=== PATIENT | male | born 1945 | race Caucasian/White ===

== ENCOUNTER 2018-07-23 09:04 | Inpatient (IN) | payer MEDICARE ==
[~2018-07-23] VITALS: Ht 182.9 cm; Wt 82.8 kg
[2018-07-23] MEDS ORDERED: IV NORMAL SALINE 1000ML BAG 1,000 ML IV ONE (09:15)
[2018-07-23 09:43] LABS: BASO % 1 % (0-3); EOS # 0.1 x10^3/uL (0.0-0.7); EOS % 1 % (0-3); HEMATOCRIT 33.7 % (39.0-53.0); HEMOGLOBIN 11.2 g/dL (13.0-17.5); LYMPH # 0.8 x10^3/uL (1.0-4.8); LYMPH % 8 % (24-48); MEAN CORPUSCULAR HEMOGLOBIN 26 pg (25-35); MEAN CORPUSCULAR HGB CONC 33 g/dL (31-37); MEAN CORPUSCULAR VOLUME 79 fL (79-100); MONO # 0.7 x10^3/uL (0.0-1.1); MONO % 7 % (0-9); NEUT # 8.7 x10^3uL (1.8-7.7); NEUT % 84 % (31-73); PLATELET COUNT 282 x10^3/uL (140-400); RED BLOOD COUNT 4.29 x10^6/uL (4.30-5.70); RED CELL DISTRIBUTION WIDTH 15.4 % (11.5-14.5); WHITE BLOOD COUNT 10.3 x10^3/uL (4.0-11.0)
[2018-07-23 09:53] LABS: CALCIUM 8.7 mg/dL (8.5-10.1); GFR 73.5; POTASSIUM 4.3 mmol/L (3.5-5.1)
[2018-07-23 09:59] LABS: CLARITY,URINE BLOODY; COLOR,URINE RED
[2018-07-23 10:01] LABS: PH,URINE 6.5; RBC,URINE TNTC /HPF (0-2); WBC,URINE FOBS /HPF (0-4)
[2018-07-23 10:08] LABS: ALBUMIN 3.1 g/dL (3.4-5.0); ALBUMIN/GLOBULIN RATIO 0.5 (1.0-1.7); TOTAL BILIRUBIN 0.3 mg/dL (0.2-1.0); TOTAL PROTEIN 9.4 g/dL (6.4-8.2)
[2018-07-23] MEDS ORDERED: fentaNYL PF VIAL 100 MCG/2 ML VIAL IV ONE (10:15)
[2018-07-23 10:18] LABS: PROTHROMBIN TIME PATIENT 13.1 SEC (11.7-14.0)
[2018-07-23 10:28] LABS: FECAL OB PT POSITIVE (NEG)
--- NOTE | 2018-07-23 11:37 | RAD ---
CT study of the abdomen and pelvis without contrast Clinical indications: Hematuria and flank pain. History kidney stones. TECHNIQUE: Noncontrast helical CT scanning of the abdomen and pelvis was performed. Without contrast, the sensitivity to detect organ pathology and GI tract pathology is decreased. PQRS compliance Statement One or more of the following individualized dose reduction techniques were utilized for this study: 1. Automated exposure control 2. Adjustment of the mA and/or kV according to patient size 3. Use of iterative reconstruction technique FINDINGS: Mild left-sided hydronephrosis and hydroureter is seen on the left side. This is due to a mid left ureteral stone measuring 5 mm in size located at the level of L4-5. Tiny punctate stone of the lower pole of the left kidney is seen. Small stone of the lower pole of the right kidney is seen measuring 5 mm. There is some hyperdense material within the posterior aspect of the urinary bladder which may represent blood related to hematuria. There is a focal nodular area of the anterior left side of the urinary bladder wall measuring 11 mm. This could represent a neoplasm. No adrenal mass is seen. The liver and spleen and pancreas are homogeneous in appearance on this noncontrast study. Gallbladder is normal and no extra hepatic biliary ductal dilatation is seen. No focal aneurysmal dilatation of the abdominal aorta is seen. No enlarged abdominal or pelvic lymphadenopathy is seen. There is segmental wall thickening of the colon including the entire sigmoid colon and descending colon and transverse colon with relative sparing of the hepatic flexure and descending colon and cecum. There is thickening of the terminal ileum. The findings may be seen with enterocolitis which may be infectious in nature or could be secondary to Crohn's disease. There is mild wall thickening of the rectum as well. There is mild pericolonic inflammatory change present. No small bowel obstruction is seen. No free air or free fluid is evident. The appendix is normal. Small right-sided pleural effusion is seen. Calcifications of the right lower lung field are seen. There is linear scarring of the right lower lung field. Patient has a history of lung cancer and this could be related to previous surgery. No osteolytic process is evident. IMPRESSION: Mild left-sided hydronephrosis and hydroureter due to a left mid ureteral stone located at the level of L4-5 and measuring 5 mm. Bilateral renal stones are seen. Wall thickening of the colon and terminal ileum which may be seen with inflammatory or infectious enterocolitis. 11 mm nodule of the urinary bladder wall which could represent a neoplasm. Hyperdense material is seen within the posterior urinary bladder which may represent blood. Small loculated pleural effusion and scarring of the right lung field which may be related to previous surgery given the patient's history of lung cancer. Electronically signed by: Felice Chaudhary MD (07/23/2018 11:33 AM) [facility]
[2018-07-23] MEDS ORDERED: ONDANSETRON PF 4 MG/2 ML VIAL. IV PRN (12:00)
[2018-07-23] MEDS ORDERED: ACETAMINOPHEN 325 MG TABLET. PO PRN (12:00)
--- NOTE | 2018-07-23 12:02 | PHYS DOC ---
Past Medical History Past Medical History: Diabetes-Type II, High Cholesterol, Hypertension, Other Additional Past Medical Histor: LUNG CA Past Surgical History: Cancer Surgery Additional Past Surgical Histo: PARTIAL LUNG REMOVED Alcohol Use: None Drug Use: None Adult General Chief Complaint Chief Complaint: BLOOD IN URINE [facility] HPI Patient is a 72 year old male who presents with hematuria 2 days. The patient does have a long history of kidney stones. He states that this pain does feel different than his normal kidney stones and he has much more blood in his urine. He states that it took approximately 5 minutes to express the bloody urine that he was able to give us a sample today. He states that he is having bilateral pain with worse pain on the left. He denies nausea with the pain although he has had some diarrhea. Review of Systems Review of Systems Constitutional: Denies fever or chills [] Eyes: Denies change in visual acuity, redness, or eye pain [] HENT: Denies nasal congestion or sore throat [] Respiratory: Denies cough or shortness of breath [] Cardiovascular: No additional information not addressed in HPI [] GI: See history of present illness : See history of present illness Musculoskeletal: See history of present illness Integument: Denies rash or skin lesions [] Neurologic: Denies headache, focal weakness or sensory changes [] Endocrine: Denies polyuria or polydipsia [] All other systems were reviewed and found to be within normal limits, except as documented in this note. Current Medications Current Medications Current Medications Medications (Trade) Dose Ordered Sig/Yamileth Start Time Stop Time Status Last Admin Dose Admin Acetaminophen (Tylenol) 650 mg PRN Q4HRS PRN 07/23/18 12:00 07/24/18 11:59 UNV Ceftriaxone Sodium 50 ml @ 100 mls/hr 1X ONCE 07/23/18 12:00 07/23/18 12:29 UNV Fentanyl Citrate (Fentanyl 2ml Vial) 50 mcg PRN Q2HR PRN 07/23/18 12:00 07/24/18 11:59 UNV Ondansetron HCl (Zofran) 4 mg PRN Q8HRS PRN 07/23/18 12:00 07/24/18 11:59 UNV Sodium Chloride 1,000 ml @ 125 mls/hr Q8H 07/23/18 11:51 07/24/18 11:50 UNV Allergies Allergies Allergies Coded Allergies Type Severity Reaction Last Updated Verified Penicillins Allergy Unknown 07/23/18 Yes Physical Exam Physical Exam Constitutional: Well developed, well nourished, no acute distress, non-toxic appearance. [] Cardiovascular:Heart rate regular rhythm, no murmur [] Lungs & Thorax: Bilateral breath sounds clear to auscultation [] Abdomen: Bowel sounds normal, soft, no tenderness, no masses, no pulsatile masses. [] Skin: Warm, dry, no erythema, no rash. [] Back: No tenderness, left CVA tenderness. [] Extremities: No tenderness, no cyanosis, no clubbing, ROM intact, no edema. [] Neurologic: Alert and oriented X 3, normal motor function, normal sensory function, no focal deficits noted. [] Psychologic: Affect normal, judgement normal, mood normal. [] Current Patient Data Vital Signs Vital Signs Date Time Temp Pulse Resp B/P (MAP) Pulse Ox O2 Delivery O2 Flow Rate FiO2 07/23/18 10:08 16 07/23/18 09:46 97.5 75 156/74 (101) 98 Room Air 97.5 Lab Values Laboratory Tests Test 07/23/18 09:10 07/23/18 09:35 07/23/18 10:08 Urine Collection Type Unknown Urine Color Red Urine Clarity Bloody Urine pH 6.5 Urine Specific [place] 1.015 Urine Protein mg/dL (NEG-TRACE) Urine Glucose (UA) 100 mg/dL (NEG) Urine Ketones (Stick) mg/dL (NEG) Urine Blood Large (NEG) Urine Nitrite (NEG) Urine Bilirubin (NEG) Urine Urobilinogen Dipstick mg/dL (0.2 mg/dL) Urine Leukocyte Esterase Small (NEG) Urine RBC Tntc /HPF (0-2) Urine WBC Fobs /HPF (0-4) Urine Bacteria /HPF (0-FEW) White Blood Count 10.3 x10^3/uL (4.0-11.0) Red Blood Count 4.29 x10^6/uL (4.30-5.70) L Hemoglobin 11.2 g/dL (13.0-17.5) L Hematocrit 33.7 % (39.0-53.0) L Mean Corpuscular Volume 79 fL (79-100) Mean Corpuscular Hemoglobin 26 pg (25-35) Mean Corpuscular Hemoglobin Concent 33 g/dL (31-37) Red Cell Distribution Width 15.4 % (11.5-14.5) H Platelet Count 282 x10^3/uL (140-400) Neutrophils (%) (Auto) 84 % (31-73) H Lymphocytes (%) (Auto) 8 % (24-48) L Monocytes (%) (Auto) 7 % (0-9) Eosinophils (%) (Auto) 1 % (0-3) Basophils (%) (Auto) 1 % (0-3) Neutrophils # (Auto) 8.7 x10^3uL (1.8-7.7) H Lymphocytes # (Auto) 0.8 x10^3/uL (1.0-4.8) L Monocytes # (Auto) 0.7 x10^3/uL (0.0-1.1) Eosinophils # (Auto) 0.1 x10^3/uL (0.0-0.7) Basophils # (Auto) 0.0 x10^3/uL (0.0-0.2) Prothrombin Time 13.1 SEC (11.7-14.0) Prothrombin Time INR 1.0 (0.8-1.1) PTT 28 SEC (24-38) Sodium Level 135 mmol/L (136-145) L Potassium Level 4.3 mmol/L (3.5-5.1) Chloride Level 100 mmol/L (98-107) Carbon Dioxide Level 29 mmol/L (21-32) Anion Gap 6 (6-14) Blood Urea Nitrogen 14 mg/dL (8-26) Creatinine 1.0 mg/dL (0.7-1.3) Estimated GFR (Cockcroft-Gault) 73.5 BUN/Creatinine Ratio 14 (6-20) Glucose Level 139 mg/dL (70-99) H Calcium Level 8.7 mg/dL (8.5-10.1) Total Bilirubin 0.3 mg/dL (0.2-1.0) Aspartate Amino Transferase (AST) 25 U/L (15-37) Alanine Aminotransferase (ALT) 25 U/L (16-63) Alkaline Phosphatase 105 U/L (46-116) Total Protein 9.4 g/dL (6.4-8.2) H Albumin 3.1 g/dL (3.4-5.0) L Albumin/Globulin Ratio 0.5 (1.0-1.7) L Stool Occult Blood Positive (NEG) Laboratory Tests 07/23/18 09:35 Laboratory Tests 07/23/18 09:35 EKG EKG [] Radiology/Procedures Radiology/Procedures [] PATIENT: ROWAN LAYTON ACCOUNT: [id number] : 1945 LOCATION: ER AGE: 72 SEX: M EXAM STATUS: REG ER ORD. 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 History kidney stones. TECHNIQUE: Noncontrast helical CT scanning of the abdomen and pelvis was performed. Without contrast, the sensitivity to detect organ pathology and GI tract pathology is decreased. PQRS compliance Statement One or more of the following individualized dose reduction techniques were utilized for this study: 1. Automated exposure control 2. Adjustment of the mA and/or kV according to patient size 3. Use of iterative reconstruction technique FINDINGS: Mild left-sided hydronephrosis and hydroureter is seen on the left side. This is due to a mid left ureteral stone measuring 5 mm in size located at the level of L4-5. Tiny punctate stone of the lower pole of the left kidney is seen. Small stone of the lower pole of the right kidney is seen measuring 5 mm. There is some hyperdense material within the posterior aspect of the urinary bladder which may represent blood related to hematuria. There is a focal nodular area of the anterior left side of the urinary bladder wall measuring 11 mm. This could represent a neoplasm. No adrenal mass is seen. The liver and spleen and pancreas are homogeneous in appearance on this noncontrast study. Gallbladder is normal and no extra hepatic biliary ductal dilatation is seen. No focal aneurysmal dilatation of the abdominal aorta is seen. No enlarged abdominal or pelvic lymphadenopathy is seen. There is segmental wall thickening of the colon including the entire sigmoid colon and descending colon and transverse colon with relative sparing of the hepatic flexure and descending colon and cecum. There is thickening of the terminal ileum. The findings may be seen with enterocolitis which may be infectious in nature or could be secondary to Crohn's disease. There is mild wall thickening of the rectum as well. There is mild pericolonic inflammatory change present. No small bowel obstruction is seen. No free air or free fluid is evident. The appendix is normal. Small right-sided pleural effusion is seen. Calcifications of the right lower lung field are seen. There is linear scarring of the right lower lung field. Patient has a history of lung cancer and this could be related to previous surgery. No osteolytic process is evident. IMPRESSION: Mild left-sided hydronephrosis and hydroureter due to a left mid ureteral stone located at the level of L4-5 and measuring 5 mm. Bilateral renal stones are seen. Wall thickening of the colon and terminal ileum which may be seen with inflammatory or infectious enterocolitis. 11 mm nodule of the urinary bladder wall which could represent a neoplasm. Hyperdense material is seen within the posterior urinary bladder which may represent blood. Small loculated pleural effusion and scarring of the right lung field which may be related to previous surgery given the patient's history of lung cancer. Electronically signed by: Kylee Chaudhary MD (07/23/2018 11:33 AM) [facility] DICTATED and SIGNED BY: KYLEE CHAUDHARY MD DATE: 07/23/181121 Course & Med Decision Making Course & Med Decision Making Pertinent Labs and Imaging studies reviewed. (See chart for details) []The patient does have bilateral renal stones as well as a few leukocytes noted to his urine. He is being given a gram of Rocephin in the emergency department. He has been accepted to Dr. Lagunas's service for admission. A urology consult has been placed. Dragon Disclaimer Dragon Disclaimer This electronic medical record was generated, in whole or in part, using a voice recognition dictation system. Departure Departure Impression: Primary Impression: UTI (urinary tract infection) Additional Impressions: Renal and ureteric calculus Lesion of bladder Disposition: ADMITTED INPATIENT Condition: GOOD Problem Qualifiers TERRENCE GRIGGS APRN Jul 23, 2018 12:02
[2018-07-23] MEDS: IV NORMAL SALINE 1000ML BAG 1,000 ML IV SCH ×2 (12:55→19:51)
--- NOTE | 2018-07-23 13:38 | EKG ---
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
[2018-07-23 14:32] VITALS: BP 118/71
[2018-07-23] MEDS ORDERED: VIT1TABL34 PO (14:32)
[2018-07-23] MEDS ORDERED: GABA-586 PO (14:32)
[2018-07-23] MEDS ORDERED: METF500T16 PO (14:32)
[2018-07-23] MEDS ORDERED: DULO60CA6 PO (14:32)
[2018-07-23] MEDS ORDERED: FERR325T14 PO (14:32)
[2018-07-23] MEDS ORDERED: DEXT10CA2 PO (14:32)
[2018-07-23] MEDS ORDERED: ASPI-612 PO (14:32)
[2018-07-23] MEDS ORDERED: CYAN10005 PO (14:32)
[2018-07-23] MEDS ORDERED: MULT-690 PO (14:32)
[2018-07-23] MEDS ORDERED: PITA4TAB2 PO (14:32)
[2018-07-23] MEDS ORDERED: LISI-338 PO (14:32)
[2018-07-23] MEDS ORDERED: NEFA150T PO ×2 (14:32)
[2018-07-23] MEDS: LISINOPRIL 5 MG TABLET. PO SCH (16:00)
[2018-07-23] MEDS ORDERED: MULTIVITAMIN I-VITE TABLET. PO SCH (16:00)
--- NOTE | 2018-07-23 16:37 | PDOC1 ---
History and Physical Date of Admission Date of Admission DATE: 07/23/18 TIME: 16:33 Source Source: Chart review, Patient History of Present Illness History of Present Illness Mr. Medina is a 72 year old male who presents with flank pain. He also has new hematuria 2 days and had some difficulty voiding earlier he has since voided well a couple of times, and feels like his flank pain is improving, mostly improved with IV fentanyl he was given./ long history of many prior renal stones, all passed without intervention needed , and he reports all were small. Past Medical History Cardiovascular: HTN Endocrine: Diabetes Family History Family History: No Significant Social History Smoke: No ALCOHOL: none Drugs: None Current Problem List Problem List Problems Medical Problems: (1) Lesion of bladder Status: Acute (2) Renal and ureteric calculus Status: Acute (3) UTI (urinary tract infection) Status: Acute Current Medications Current Medications Current Medications Sodium Chloride 1,000 ml @ 1,000 mls/hr 1X ONCE IV Last administered on at 09:59; Start 07/23/18 at 09:15; Stop 07/23/18 at 10:14; Status DC Fentanyl Citrate (Fentanyl 2ml Vial) 50 mcg 1X ONCE IV Last administered on 07/23/18at 10:08; Start 07/23/18 at 10:15; Stop 07/23/18 at 10:16; Status DC Ondansetron HCl (Zofran) 4 mg PRN Q8HRS PRN IV NAUSEA/VOMITING; Start 07/23/18 at 12:00; Stop 07/24/18 at 11:59 Fentanyl Citrate (Fentanyl 2ml Vial) 50 mcg PRN Q2HR PRN IV PAIN; Start at 12:00; Stop 07/24/18 at 11:59 Sodium Chloride 1,000 ml @ 125 mls/hr Q8H IV Last administered on 07/23/18at 12: 55; Start 07/23/18 at 11:51; Stop 07/24/18 at 11:50 Acetaminophen (Tylenol) 650 mg PRN Q4HRS PRN PO FEVER; Start 07/23/18 at 12:00; Stop 07/24/18 at 11:59 Ceftriaxone Sodium 50 ml @ 100 mls/hr 1X ONCE IV ; Start 07/23/18 at 12:00; Stop 07/23/18 at 12:29; Status UNV Levofloxacin/ Dextrose 50 ml @ 50 mls/hr ONCE ONCE IV Last administered on 07/23at 12:54; Start 07/23/18 at 12:30; Stop 07/23/18 at 13:29; Status DC Ferrous Sulfate (Feosol) 325 mg DAILY08 PO ; Start 07/23/18 at 16:00 Non-Formulary Medication (Dextroamphetamine/ Amphetamine (Dextroamp-Amphet Er 10 Mg Cap)) 1 cap DAILYWBKFT PO ; Start 07/24/18 at 08:00; Status UNV Duloxetine HCl (Cymbalta) 60 mg QHS PO ; Start 07/23/18 at 21:00 Gabapentin (Neurontin) 300 mg QHS PO ; Start 07/23/18 at 21:00 Lisinopril (Prinivil) 2.5 mg DAILY PO ; Start 07/23/18 at 16:00 Metformin HCl (Glucophage) 500 mg BIDWMEALS PO ; Start 07/23/18 at 17:00 Multivitamins/ Minerals (I-Caleb) 1 tab DAILY PO ; Start 07/23/18 at 16:00; Stop 07/23/18 at 16:00; Status DC Non-Formulary Medication (Nefazodone Hcl ) 0.5 tab DAILY07 PO ; Start 07/24/18 at 07:00; Status UNV Non-Formulary Medication (Nefazodone Hcl ) 1.5 tab DAILY16 PO ; Start 07/23/18 at 16:00; Status UNV Atorvastatin Calcium (Lipitor) 10 mg QHS PO ; Start 07/23/18 at 21:00 Non-Formulary Medication (Vit A/Vit C/Vit E/Zinc/Copper (Preservision Areds Tablet)) 2 tab DAILY PO ; Start 07/24/18 at 09:00; Status UNV Multivitamins/ Minerals (I-Caleb) 2 tab DAILY PO ; Start 07/23/18 at 16:00 Tamsulosin HCl (Flomax) 0.4 mg DAILY PO ; Start 07/23/18 at 16:15 Active Scripts Active Reported Vitamin B-12 (Cyanocobalamin (Vitamin B-12)) 1,000 Mcg Tablet 1 Tab PO DAILY Ferrous Sulfate 325 Mg Tablet 1 Tab PO DAILY Preservision Areds Tablet (Vit A/Vit C/Vit E/Zinc/Copper) 1 Each Tablet 2 Tab PO DAILY Centrum Silver Men Tablet (Multivit-Min/FA/Lycopen/Lutein) 1 Each Tablet 1 Each PO DAILY Dextroamp-Amphet Er 10 Mg Cap (Dextroamphetamine/Amphetamine) 10 Mg Cap.er.24h 1 Cap PO DAILYWBKFT Aspirin Ec (Aspirin) 81 Mg Tablet.dr 1 Tab PO DAILY Livalo (Pitavastatin Calcium) 4 Mg Tablet 0.5 Tab PO DAILY Lisinopril 5 Mg Tablet 0.5 Tab PO DAILY Gabapentin 300 Mg Capsule 300 Mg PO HS Metformin Hcl 500 Mg Tablet 500 Mg PO BIDWMEALS Cymbalta (Duloxetine Hcl) 60 Mg Capsule.dr 60 Mg PO HS Nefazodone Hcl 150 Mg Tablet 1.5 Tab PO DAILY16 Nefazodone Hcl 150 Mg Tablet 0.5 Tab PO DAILY07 Allergies Allergies: Coded Allergies: Penicillins (Verified Allergy, Severe, 07/23/18) states "i was told it will kill me"; presume anaphylaxis ROS General: No: Chills, Night Sweats, Fatigue, Malaise, Appetite, Other PSYCHOLOGICAL ROS: YES: Sleep disturbances; No: Anxiety, Behavioral Disorder, Concentration difficultie, Decreased libido , Depression, Disorientation, Hallucinations, Hostility, Irritablity, Memory difficulties, Mood Swings, Obsessive thoughts, Other Eyes: Yes Uses glasses HEENT: No: Heacaches, Visual Changes, Hearing change, Nasal congestion, Nasal discharge, Oral lesions, Sinus pain, Sore Throat, Epistaxis, Sneezing, Snoring, Tinnitus, Vertigo, Vocal changes, Other Hematological and Lymphatic: YES: Bleeding Problems (urine), Other; No: Blood Clots, Blood Transfusions, Brusing, Night Sweats, Pallor, Swollen Lymph Nodes Respiratory: No: Cough, Hemoptysis, Orthopnea, Pleuritic Pain, Shortness of breath, SOB with excertion, Sputum Changes, Stridor, Tachypnea, Wheezing, Other Cardiovascular: No Chest Pain, No Palpitations, No Orthopnea, No Paroxysmal Noc. Dyspnea, No Edema, No Lt Headedness, No Other Genitourinary: YES Hematuria, YES Flank Pain Musculoskeletal: No Gait Disturbance, No Joint Pain, No Joint Stiffness, No Joint Swelling, No Muscle Pain, No Muscular Weakness, No Pain In:, No Swelling In:, No Other Neurological: No Behavorial Changes, No Bowel/Bladder ControlChng, No Confusion , No Dizziness, No Gait Disturbance, No Headaches, No Impaired Coord/balance, No Memory Loss, No Numbness/Tingling, No Seizures, No Speech Problems, No Tremors, No Visual Changes, No Weakness, No Other Skin: Yes Dry Skin; No Eczema, No Hair Changes, No Lumps, No Mole Changes, No Mottling, No Nail Changes, No Pruritus, No Rash, No Skin Lesion Changes, No Other, No Acne Physical Exam General: Alert, Oriented X3, Cooperative, No acute distress HEENT: Atraumatic, Mucous membr. moist/pink Lungs: Clear to auscultation, Normal air movement Heart: S1S2, RRR, no gallops, murmurs Abdomen: Normal bowel sounds, Soft Extremities: No clubbing, No edema Skin: No breakdown, No significant lesion Neuro: Normal speech, Normal tone Psych/Mental Status: Mental status NL, Mood NL Vitals Vitals Vital Signs Date Time Temp Pulse Resp B/P (MAP) Pulse Ox O2 Delivery O2 Flow Rate FiO2 07/23/18 14:32 95.7 74 18 118/71 (87) 98 Room Air 95.7 Labs Labs Laboratory Tests Test 07/23/18 09:10 07/23/18 09:35 07/23/18 10:08 Urine Collection Type Unknown Urine Color Red Urine Clarity Bloody Urine pH 6.5 Urine Specific [place] 1.015 Urine Protein mg/dL (NEG-TRACE) Urine Glucose (UA) 100 mg/dL (NEG) Urine Ketones (Stick) mg/dL (NEG) Urine Blood Large (NEG) Urine Nitrite (NEG) Urine Bilirubin (NEG) Urine Urobilinogen Dipstick mg/dL (0.2 mg/dL) Urine Leukocyte Esterase Small (NEG) Urine RBC Tntc /HPF (0-2) Urine WBC Fobs /HPF (0-4) Urine Bacteria /HPF (0-FEW) White Blood Count 10.3 x10^3/uL (4.0-11.0) Red Blood Count 4.29 x10^6/uL (4.30-5.70) Hemoglobin 11.2 g/dL (13.0-17.5) Hematocrit 33.7 % (39.0-53.0) Mean Corpuscular Volume 79 fL (79-100) Mean Corpuscular Hemoglobin 26 pg (25-35) Mean Corpuscular Hemoglobin Concent 33 g/dL (31-37) Red Cell Distribution Width 15.4 % (11.5-14.5) Platelet Count 282 x10^3/uL (140-400) Neutrophils (%) (Auto) 84 % (31-73) Lymphocytes (%) (Auto) 8 % (24-48) Monocytes (%) (Auto) 7 % (0-9) Eosinophils (%) (Auto) 1 % (0-3) Basophils (%) (Auto) 1 % (0-3) Neutrophils # (Auto) 8.7 x10^3uL (1.8-7.7) Lymphocytes # (Auto) 0.8 x10^3/uL (1.0-4.8) Monocytes # (Auto) 0.7 x10^3/uL (0.0-1.1) Eosinophils # (Auto) 0.1 x10^3/uL (0.0-0.7) Basophils # (Auto) 0.0 x10^3/uL (0.0-0.2) Prothrombin Time 13.1 SEC (11.7-14.0) Prothromb Time International Ratio 1.0 (0.8-1.1) Activated Partial Thromboplast Time 28 SEC (24-38) Sodium Level 135 mmol/L (136-145) Potassium Level 4.3 mmol/L (3.5-5.1) Chloride Level 100 mmol/L (98-107) Carbon Dioxide Level 29 mmol/L (21-32) Anion Gap 6 (6-14) Blood Urea Nitrogen 14 mg/dL (8-26) Creatinine 1.0 mg/dL (0.7-1.3) Estimated GFR (Cockcroft-Gault) 73.5 BUN/Creatinine Ratio 14 (6-20) Glucose Level 139 mg/dL (70-99) Calcium Level 8.7 mg/dL (8.5-10.1) Total Bilirubin 0.3 mg/dL (0.2-1.0) Aspartate Amino Transf (AST/SGOT) 25 U/L (15-37) Alanine Aminotransferase (ALT/SGPT) 25 U/L (16-63) Alkaline Phosphatase 105 U/L (46-116) Total Protein 9.4 g/dL (6.4-8.2) Albumin 3.1 g/dL (3.4-5.0) Albumin/Globulin Ratio 0.5 (1.0-1.7) Stool Occult Blood Positive (NEG) Laboratory Tests Test 07/23/18 09:10 07/23/18 09:35 07/23/18 10:08 Urine Collection Type Unknown Urine Color Red Urine Clarity Bloody Urine pH 6.5 Urine Specific [place] 1.015 Urine Protein mg/dL (NEG-TRACE) Urine Glucose (UA) 100 mg/dL (NEG) Urine Ketones (Stick) mg/dL (NEG) Urine Blood Large (NEG) Urine Nitrite (NEG) Urine Bilirubin (NEG) Urine Urobilinogen Dipstick mg/dL (0.2 mg/dL) Urine Leukocyte Esterase Small (NEG) Urine RBC Tntc /HPF (0-2) Urine WBC Fobs /HPF (0-4) Urine Bacteria /HPF (0-FEW) White Blood Count 10.3 x10^3/uL (4.0-11.0) Red Blood Count 4.29 x10^6/uL (4.30-5.70) Hemoglobin 11.2 g/dL (13.0-17.5) Hematocrit 33.7 % (39.0-53.0) Mean Corpuscular Volume 79 fL (79-100) Mean Corpuscular Hemoglobin 26 pg (25-35) Mean Corpuscular Hemoglobin Concent 33 g/dL (31-37) Red Cell Distribution Width 15.4 % (11.5-14.5) Platelet Count 282 x10^3/uL (140-400) Neutrophils (%) (Auto) 84 % (31-73) Lymphocytes (%) (Auto) 8 % (24-48) Monocytes (%) (Auto) 7 % (0-9) Eosinophils (%) (Auto) 1 % (0-3) Basophils (%) (Auto) 1 % (0-3) Neutrophils # (Auto) 8.7 x10^3uL (1.8-7.7) Lymphocytes # (Auto) 0.8 x10^3/uL (1.0-4.8) Monocytes # (Auto) 0.7 x10^3/uL (0.0-1.1) Eosinophils # (Auto) 0.1 x10^3/uL (0.0-0.7) Basophils # (Auto) 0.0 x10^3/uL (0.0-0.2) Prothrombin Time 13.1 SEC (11.7-14.0) Prothromb Time International Ratio 1.0 (0.8-1.1) Activated Partial Thromboplast Time 28 SEC (24-38) Sodium Level 135 mmol/L (136-145) Potassium Level 4.3 mmol/L (3.5-5.1) Chloride Level 100 mmol/L (98-107) Carbon Dioxide Level 29 mmol/L (21-32) Anion Gap 6 (6-14) Blood Urea Nitrogen 14 mg/dL (8-26) Creatinine 1.0 mg/dL (0.7-1.3) Estimated GFR (Cockcroft-Gault) 73.5 BUN/Creatinine Ratio 14 (6-20) Glucose Level 139 mg/dL (70-99) Calcium Level 8.7 mg/dL (8.5-10.1) Total Bilirubin 0.3 mg/dL (0.2-1.0) Aspartate Amino Transf (AST/SGOT) 25 U/L (15-37) Alanine Aminotransferase (ALT/SGPT) 25 U/L (16-63) Alkaline Phosphatase 105 U/L (46-116) Total Protein 9.4 g/dL (6.4-8.2) Albumin 3.1 g/dL (3.4-5.0) Albumin/Globulin Ratio 0.5 (1.0-1.7) Stool Occult Blood Positive (NEG) VTE Prophylaxis Ordered VTE Prophylaxis Devices: No VTE Pharmacological Prophylaxi: Contraindicated Assessment/Plan Assessment/Plan flank pain acute hematuria renal stone bladder mass, NOS renal consult admit w./ IV fluid Htn Dm2, home [place], CRISTIAN Arana MD Jul 23, 2018 16:37
[2018-07-23] MEDS ORDERED: oxyCODONE IR 5 MG TABLET PO PRN (16:45)
[2018-07-23] MEDS: metFORMIN 500 MG TABLET PO SCH (17:10)
[2018-07-23] MEDS: TAMSULOSIN 0.4 MG CAP.ER.24H. PO SCH (17:10)
[2018-07-23] MEDS: FERROUS SULFATE 325 MG TABLET. PO SCH (17:11)
[2018-07-23] MEDS: NEFAZODONE HCL PO SCH (17:15)
[2018-07-23] MEDS: fentaNYL PF VIAL 100 MCG/2 ML VIAL IV PRN ×2 (18:49→22:31)
--- NOTE | 2018-07-23 18:53 | PDOC2 ---
UROLOGY CONSULT Date of Admission DATE: 07/23/18 TIME: 18:44 Chief Complaint gh flank pain Source: Chart review, Patient 2-3 days of GH and left renal colic. No fever, no chills, no nausea or vomiting. Prior stones, passed spontaneously. Severity of GH during this episode exceeds that of prior episodes. Koolaid color upon my encounter. Pain controlled with iv meds. ua with rbc, wbc, no bacteria. cr ct with 5mm left mid ureter and 1cm left dome lesion. ROS ROS: RESPIRATORY: Shortness of breath denies. Cough denies. UROLOGY: Denies blood in urine. Denies difficulty urinating Past Surgical History: No pertinent history Current Medications Current Medications Sodium Chloride 1,000 ml @ 1,000 mls/hr 1X ONCE IV Last administered on at 09:59; Start 07/23/18 at 09:15; Stop 07/23/18 at 10:14; Status DC Fentanyl Citrate (Fentanyl 2ml Vial) 50 mcg 1X ONCE IV Last administered on 07/23/18at 10:08; Start 07/23/18 at 10:15; Stop 07/23/18 at 10:16; Status DC Ondansetron HCl (Zofran) 4 mg PRN Q8HRS PRN IV NAUSEA/VOMITING; Start 07/23/18 at 12:00; Stop 07/24/18 at 11:59 Fentanyl Citrate (Fentanyl 2ml Vial) 50 mcg PRN Q2HR PRN IV PAIN; Start at 12:00; Stop 07/24/18 at 11:59 Sodium Chloride 1,000 ml @ 125 mls/hr Q8H IV Last administered on 07/23/18at 12: 55; Start 07/23/18 at 11:51; Stop 07/24/18 at 11:50 Acetaminophen (Tylenol) 650 mg PRN Q4HRS PRN PO FEVER; Start 07/23/18 at 12:00; Stop 07/24/18 at 11:59 Ceftriaxone Sodium 50 ml @ 100 mls/hr 1X ONCE IV ; Start 07/23/18 at 12:00; Stop 07/23/18 at 12:29; Status UNV Levofloxacin/ Dextrose 50 ml @ 50 mls/hr ONCE ONCE IV Last administered on 07/23at 12:54; Start 07/23/18 at 12:30; Stop 07/23/18 at 13:29; Status DC Ferrous Sulfate (Feosol) 325 mg DAILY08 PO Last administered on 07/23/18at 17:11 ; Start 07/23/18 at 16:00 Non-Formulary Medication (Dextroamphetamine/ Amphetamine (Dextroamp-Amphet Er 10 Mg Cap)) 1 cap DAILYWBKFT PO ; Start 07/24/18 at 08:00; Status UNV Duloxetine HCl (Cymbalta) 60 mg QHS PO ; Start 07/23/18 at 21:00 Gabapentin (Neurontin) 300 mg QHS PO ; Start 07/23/18 at 21:00 Lisinopril (Prinivil) 2.5 mg DAILY PO ; Start 07/23/18 at 16:00 Metformin HCl (Glucophage) 500 mg BIDWMEALS PO Last administered on 07/23/18at 17 :10; Start 07/23/18 at 17:00 Multivitamins/ Minerals (I-Caleb) 1 tab DAILY PO ; Start 07/23/18 at 16:00; Stop 07/23/18 at 16:00; Status DC Non-Formulary Medication (Nefazodone Hcl ) 0.5 tab DAILY07 PO ; Start 07/24/18 at 07:00; Status UNV Non-Formulary Medication (Nefazodone Hcl ) 1.5 tab DAILY16 PO ; Start 07/23/18 at 16:00; Status UNV Atorvastatin Calcium (Lipitor) 10 mg QHS PO ; Start 07/23/18 at 21:00 Non-Formulary Medication (Vit A/Vit C/Vit E/Zinc/Copper (Preservision Areds Tablet)) 2 tab DAILY PO ; Start 07/24/18 at 09:00; Status UNV Multivitamins/ Minerals (I-Caleb) 2 tab DAILY PO ; Start 07/23/18 at 16:00 Tamsulosin HCl (Flomax) 0.4 mg DAILY PO Last administered on 07/23/18at 17:10; Start 07/23/18 at 16:15 Oxycodone HCl (Roxicodone) 5 mg PRN Q6HRS PRN PO PAIN SEVERE; Start 07/23/18 at 16:45 Acetaminophen (Tylenol) 650 mg BID PO ; Start 07/23/18 at 21:00 Active Scripts Active Reported Vitamin B-12 (Cyanocobalamin (Vitamin B-12)) 1,000 Mcg Tablet 1 Tab PO DAILY Ferrous Sulfate 325 Mg Tablet 1 Tab PO DAILY Preservision Areds Tablet (Vit A/Vit C/Vit E/Zinc/Copper) 1 Each Tablet 2 Tab PO DAILY Centrum Silver Men Tablet (Multivit-Min/FA/Lycopen/Lutein) 1 Each Tablet 1 Each PO DAILY Dextroamp-Amphet Er 10 Mg Cap (Dextroamphetamine/Amphetamine) 10 Mg Cap.er.24h 1 Cap PO DAILYWBKFT Aspirin Ec (Aspirin) 81 Mg Tablet.dr 1 Tab PO DAILY Livalo (Pitavastatin Calcium) 4 Mg Tablet 0.5 Tab PO DAILY Lisinopril 5 Mg Tablet 0.5 Tab PO DAILY Gabapentin 300 Mg Capsule 300 Mg PO HS Metformin Hcl 500 Mg Tablet 500 Mg PO BIDWMEALS Cymbalta (Duloxetine Hcl) 60 Mg Capsule.dr 60 Mg PO HS Nefazodone Hcl 150 Mg Tablet 1.5 Tab PO DAILY16 Nefazodone Hcl 150 Mg Tablet 0.5 Tab PO DAILY07 Allergies: Coded Allergies: Penicillins (Verified Allergy, Severe, 07/23/18) states "i was told it will kill me"; presume anaphylaxis Physical Examination PHYSICAL EXAMINATION: GENERAL: Gen. appearance: No acute distress. Mood/affect: Pleasant. HEENT: Head: Normocephalic, atraumatic. Airway Impairment: No. CHEST: Shape and expansion: Normal. Expansion: Normal. SKIN: General: Warm. Color: Good. GENITOURINARY:External genitalia - wnl. NEUROLOGICAL: Mental status: Alert and oriented 3. Language: Normal. VITALS Vital Signs Date Time Temp Pulse Resp B/P (MAP) Pulse Ox O2 Delivery O2 Flow Rate FiO2 07/23/18 16:00 74 118/71 07/23/18 14:32 95.7 18 98 Room Air 95.7 Labs Laboratory Tests Test 07/23/18 09:10 07/23/18 09:35 07/23/18 10:08 Urine Collection Type Unknown Urine Color Red Urine Clarity Bloody Urine pH 6.5 Urine Specific [place] 1.015 Urine Protein mg/dL (NEG-TRACE) Urine Glucose (UA) 100 mg/dL (NEG) Urine Ketones (Stick) mg/dL (NEG) Urine Blood Large (NEG) Urine Nitrite (NEG) Urine Bilirubin (NEG) Urine Urobilinogen Dipstick mg/dL (0.2 mg/dL) Urine Leukocyte Esterase Small (NEG) Urine RBC Tntc /HPF (0-2) Urine WBC Fobs /HPF (0-4) Urine Bacteria /HPF (0-FEW) White Blood Count 10.3 x10^3/uL (4.0-11.0) Red Blood Count 4.29 x10^6/uL (4.30-5.70) Hemoglobin 11.2 g/dL (13.0-17.5) Hematocrit 33.7 % (39.0-53.0) Mean Corpuscular Volume 79 fL (79-100) Mean Corpuscular Hemoglobin 26 pg (25-35) Mean Corpuscular Hemoglobin Concent 33 g/dL (31-37) Red Cell Distribution Width 15.4 % (11.5-14.5) Platelet Count 282 x10^3/uL (140-400) Neutrophils (%) (Auto) 84 % (31-73) Lymphocytes (%) (Auto) 8 % (24-48) Monocytes (%) (Auto) 7 % (0-9) Eosinophils (%) (Auto) 1 % (0-3) Basophils (%) (Auto) 1 % (0-3) Neutrophils # (Auto) 8.7 x10^3uL (1.8-7.7) Lymphocytes # (Auto) 0.8 x10^3/uL (1.0-4.8) Monocytes # (Auto) 0.7 x10^3/uL (0.0-1.1) Eosinophils # (Auto) 0.1 x10^3/uL (0.0-0.7) Basophils # (Auto) 0.0 x10^3/uL (0.0-0.2) Prothrombin Time 13.1 SEC (11.7-14.0) Prothromb Time International Ratio 1.0 (0.8-1.1) Activated Partial Thromboplast Time 28 SEC (24-38) Sodium Level 135 mmol/L (136-145) Potassium Level 4.3 mmol/L (3.5-5.1) Chloride Level 100 mmol/L (98-107) Carbon Dioxide Level 29 mmol/L (21-32) Anion Gap 6 (6-14) Blood Urea Nitrogen 14 mg/dL (8-26) Creatinine 1.0 mg/dL (0.7-1.3) Estimated GFR (Cockcroft-Gault) 73.5 BUN/Creatinine Ratio 14 (6-20) Glucose Level 139 mg/dL (70-99) Calcium Level 8.7 mg/dL (8.5-10.1) Total Bilirubin 0.3 mg/dL (0.2-1.0) Aspartate Amino Transf (AST/SGOT) 25 U/L (15-37) Alanine Aminotransferase (ALT/SGPT) 25 U/L (16-63) Alkaline Phosphatase 105 U/L (46-116) Total Protein 9.4 g/dL (6.4-8.2) Albumin 3.1 g/dL (3.4-5.0) Albumin/Globulin Ratio 0.5 (1.0-1.7) Stool Occult Blood Positive (NEG) Laboratory Tests Test 07/23/18 09:10 07/23/18 09:35 07/23/18 10:08 Urine Collection Type Unknown Urine Color Red Urine Clarity Bloody Urine pH 6.5 Urine Specific [place] 1.015 Urine Protein mg/dL (NEG-TRACE) Urine Glucose (UA) 100 mg/dL (NEG) Urine Ketones (Stick) mg/dL (NEG) Urine Blood Large (NEG) Urine Nitrite (NEG) Urine Bilirubin (NEG) Urine Urobilinogen Dipstick mg/dL (0.2 mg/dL) Urine Leukocyte Esterase Small (NEG) Urine RBC Tntc /HPF (0-2) Urine WBC Fobs /HPF (0-4) Urine Bacteria /HPF (0-FEW) White Blood Count 10.3 x10^3/uL (4.0-11.0) Red Blood Count 4.29 x10^6/uL (4.30-5.70) Hemoglobin 11.2 g/dL (13.0-17.5) Hematocrit 33.7 % (39.0-53.0) Mean Corpuscular Volume 79 fL (79-100) Mean Corpuscular Hemoglobin 26 pg (25-35) Mean Corpuscular Hemoglobin Concent 33 g/dL (31-37) Red Cell Distribution Width 15.4 % (11.5-14.5) Platelet Count 282 x10^3/uL (140-400) Neutrophils (%) (Auto) 84 % (31-73) Lymphocytes (%) (Auto) 8 % (24-48) Monocytes (%) (Auto) 7 % (0-9) Eosinophils (%) (Auto) 1 % (0-3) Basophils (%) (Auto) 1 % (0-3) Neutrophils # (Auto) 8.7 x10^3uL (1.8-7.7) Lymphocytes # (Auto) 0.8 x10^3/uL (1.0-4.8) Monocytes # (Auto) 0.7 x10^3/uL (0.0-1.1) Eosinophils # (Auto) 0.1 x10^3/uL (0.0-0.7) Basophils # (Auto) 0.0 x10^3/uL (0.0-0.2) Prothrombin Time 13.1 SEC (11.7-14.0) Prothromb Time International Ratio 1.0 (0.8-1.1) Activated Partial Thromboplast Time 28 SEC (24-38) Sodium Level 135 mmol/L (136-145) Potassium Level 4.3 mmol/L (3.5-5.1) Chloride Level 100 mmol/L (98-107) Carbon Dioxide Level 29 mmol/L (21-32) Anion Gap 6 (6-14) Blood Urea Nitrogen 14 mg/dL (8-26) Creatinine 1.0 mg/dL (0.7-1.3) Estimated GFR (Cockcroft-Gault) 73.5 BUN/Creatinine Ratio 14 (6-20) Glucose Level 139 mg/dL (70-99) Calcium Level 8.7 mg/dL (8.5-10.1) Total Bilirubin 0.3 mg/dL (0.2-1.0) Aspartate Amino Transf (AST/SGOT) 25 U/L (15-37) Alanine Aminotransferase (ALT/SGPT) 25 U/L (16-63) Alkaline Phosphatase 105 U/L (46-116) Total Protein 9.4 g/dL (6.4-8.2) Albumin 3.1 g/dL (3.4-5.0) Albumin/Globulin Ratio 0.5 (1.0-1.7) Stool Occult Blood Positive (NEG) Assessment/Plan gh. bladder lesion. urolothiasis. May continue with ivf, flomax for SSP. If not passed in next 24-36h, then we can do do urs during cysto(see below). ucb. needs cysto, turbt, mitomycin C. DEEDEE CORTES MD Jul 23, 2018 18:53
[2018-07-23 19:00] VITALS: BP 97/60
[2018-07-23] MEDS: ATORVASTATIN CALCIUM 10 MG TABLET. PO SCH (21:29)
[2018-07-23] MEDS: GABAPENTIN 300 MG CAPSULE. PO SCH (21:29)
[2018-07-23] MEDS: ACETAMINOPHEN 325 MG TABLET. PO SCH (21:29)
[2018-07-23] MEDS: DULoxetine HCL 30 MG CAPSULE.DR PO SCH (21:30)
[2018-07-23 23:00] VITALS: BP 112/61
[2018-07-24] MEDS: IV NORMAL SALINE 1000ML BAG 1,000 ML IV SCH (00:43)
[2018-07-24 03:00] VITALS: BP 104/60
[2018-07-24 04:35] LABS: BASO % 0 % (0-3); EOS # 0.2 x10^3/uL (0.0-0.7); EOS % 3 % (0-3); HEMATOCRIT 28.6 % (39.0-53.0); HEMOGLOBIN 9.4 g/dL (13.0-17.5); LYMPH # 1.4 x10^3/uL (1.0-4.8); LYMPH % 19 % (24-48); MEAN CORPUSCULAR HEMOGLOBIN 26 pg (25-35); MEAN CORPUSCULAR HGB CONC 33 g/dL (31-37); MEAN CORPUSCULAR VOLUME 79 fL (79-100); MONO # 0.5 x10^3/uL (0.0-1.1); MONO % 8 % (0-9); NEUT % 70 % (31-73); PLATELET COUNT 216 x10^3/uL (140-400); RED BLOOD COUNT 3.63 x10^6/uL (4.30-5.70); RED CELL DISTRIBUTION WIDTH 15.5 % (11.5-14.5); WHITE BLOOD COUNT 7.1 x10^3/uL (4.0-11.0)
[2018-07-24 05:24] LABS: CALCIUM 7.9 mg/dL (8.5-10.1); CREATININE 0.8 mg/dL (0.7-1.3); POTASSIUM 3.9 mmol/L (3.5-5.1)
[2018-07-24 07:00] VITALS: BP 118/76
[2018-07-24] MEDS: NEFAZODONE HCL PO SCH ×2 (07:00→16:00)
[2018-07-24] MEDS ORDERED: [UNRECOGNIZED DRUG - OTHER] PO SCH (08:00)
[2018-07-24] MEDS ORDERED: AMPHETAMINE PO SCH (08:00)
[2018-07-24] MEDS ORDERED: DEXTROAMPHETAMINE PO SCH (08:00)
--- NOTE | 2018-07-24 08:55 | PDOC ---
SUBJECTIVE Subjective Pt had a restful night, no pain to speak of. His CBI has been without blood for several hours now. CBI is currently off but patient does not know when they shut it off. Neither does attending RN. OBJECTIVE Objective Physical Exam: General appearance: Alert and Oriented Head: Normocephalic, without obvious abnormality Eyes: conjunctivae/corneas clear. PERRL, EOM's intact. Fundi benign Back: negative Lungs: regular respirations, non labored breathing Abdomen: soft, non-tender. Bowel sounds normal. No masses, no organomegaly Pelvic: foely catheter in place draining clear yellow urine. CBI connected but not running. Vital Signs Vital Signs Date Time Temp Pulse Resp B/P (MAP) Pulse Ox O2 Delivery O2 Flow Rate FiO2 07/24/18 07:00 97.7 76 14 118/76 (90) 96 Room Air 97.7 07/24/18 03:00 97.6 69 18 104/60 (75) 96 Room Air 97.6 07/23/18 23:00 98.1 71 18 112/61 (78) 100 Room Air 98.1 07/23/18 19:10 Room Air 07/23/18 19:00 98.3 72 18 97/60 (72) 97 Room Air 98.3 07/23/18 18:49 Room Air 07/23/18 16:00 74 118/71 07/23/18 14:32 95.7 74 18 118/71 (87) 98 Room Air 95.7 07/23/18 14:00 Room Air 07/23/18 13:40 Room Air 07/23/18 11:48 70 109/69 (82) 94 07/23/18 10:17 67 116/64 (81) 98 Room Air 07/23/18 10:08 16 07/23/18 09:46 97.5 75 16 156/74 (101) 98 Room Air 97.5 07/23/18 09:17 72 140/66 (90) I & O Intake and Output 07/24/18 07:00 Intake Total 2725 ml Output Total 650 ml Balance 2075 ml Intake Oral 725 ml IV Total 2000 ml Output Urine Total 650 ml # Voids 1 PHYSICAL EXAM Physical Exam Physical Exam: General appearance: Alert and Oriented Head: Normocephalic, without obvious abnormality Eyes: conjunctivae/corneas clear. PERRL, EOM's intact. Fundi benign Back: negative Lungs: regular respirations, non labored breathing Abdomen: soft, non-tender. Bowel sounds normal. No masses, no organomegaly Pelvic: foely catheter in place draining clear yellow urine. CBI connected but not running. ASSESSMENT/PLAN Assessment/Plan NPO as of now KUB urgently to check stone progress Keep CBI shut off. CONTAINER REPAIRER will check again around 11 am. If urine still clear may disconnect CBI tubing. UPDATE KUB negative, patient still not having any pain or symptoms. He thinks the stone has passed also. Harrell catheter continues to drain clear yellow urine-CBI off and capped. Nursing to maintain indwelling harrell for now. Dr. Carter wants to do a TURBT tomorrow on patient. OR called and it has been arranged for Dr. Carter to follow last case for TURBT. Explained plan/procedure to patient. All questions answered. Pt may eat regular diet today. NPO as of midnight tonight. Will follow while in house. COMMENT Lab Laboratory Tests Test 07/23/18 09:10 07/23/18 09:35 07/23/18 10:08 07/24/18 03:40 Urine Collection Type Unknown Urine Color Red Urine Clarity Bloody Urine pH 6.5 Urine Specific [place] 1.015 Urine Protein mg/dL (NEG-TRACE) Urine Glucose (UA) 100 mg/dL (NEG) Urine Ketones (Stick) mg/dL (NEG) Urine Blood Large (NEG) Urine Nitrite (NEG) Urine Bilirubin (NEG) Urine Urobilinogen Dipstick mg/dL (0.2 mg/dL) Urine Leukocyte Esterase Small (NEG) Urine RBC Tntc /HPF (0-2) Urine WBC Fobs /HPF (0-4) Urine Bacteria /HPF (0-FEW) White Blood Count 10.3 x10^3/uL (4.0-11.0) 7.1 x10^3/uL (4.0-11.0) Red Blood Count 4.29 x10^6/uL (4.30-5.70) 3.63 x10^6/uL (4.30-5.70) Hemoglobin 11.2 g/dL (13.0-17.5) 9.4 g/dL (13.0-17.5) Hematocrit 33.7 % (39.0-53.0) 28.6 % (39.0-53.0) Mean Corpuscular Volume 79 fL (79-100) 79 fL (79-100) Mean Corpuscular Hemoglobin 26 pg (25-35) 26 pg (25-35) Mean Corpuscular Hemoglobin Concent 33 g/dL (31-37) 33 g/dL (31-37) Red Cell Distribution Width 15.4 % (11.5-14.5) 15.5 % (11.5-14.5) Platelet Count 282 x10^3/uL (140-400) 216 x10^3/uL (140-400) Neutrophils (%) (Auto) 84 % (31-73) 70 % (31-73) Lymphocytes (%) (Auto) 8 % (24-48) 19 % (24-48) Monocytes (%) (Auto) 7 % (0-9) 8 % (0-9) Eosinophils (%) (Auto) 1 % (0-3) 3 % (0-3) Basophils (%) (Auto) 1 % (0-3) 0 % (0-3) Neutrophils # (Auto) 8.7 x10^3uL (1.8-7.7) 5.0 x10^3uL (1.8-7.7) Lymphocytes # (Auto) 0.8 x10^3/uL (1.0-4.8) 1.4 x10^3/uL (1.0-4.8) Monocytes # (Auto) 0.7 x10^3/uL (0.0-1.1) 0.5 x10^3/uL (0.0-1.1) Eosinophils # (Auto) 0.1 x10^3/uL (0.0-0.7) 0.2 x10^3/uL (0.0-0.7) Basophils # (Auto) 0.0 x10^3/uL (0.0-0.2) 0.0 x10^3/uL (0.0-0.2) Prothrombin Time 13.1 SEC (11.7-14.0) Prothromb Time International Ratio 1.0 (0.8-1.1) Activated Partial Thromboplast Time 28 SEC (24-38) Sodium Level 135 mmol/L (136-145) 139 mmol/L (136-145) Potassium Level 4.3 mmol/L (3.5-5.1) 3.9 mmol/L (3.5-5.1) Chloride Level 100 mmol/L (98-107) 107 mmol/L (98-107) Carbon Dioxide Level 29 mmol/L (21-32) 27 mmol/L (21-32) Anion Gap 6 (6-14) 5 (6-14) Blood Urea Nitrogen 14 mg/dL (8-26) 10 mg/dL (8-26) Creatinine 1.0 mg/dL (0.7-1.3) 0.8 mg/dL (0.7-1.3) Estimated GFR (Cockcroft-Gault) 73.5 95.0 BUN/Creatinine Ratio 14 (6-20) Glucose Level 139 mg/dL (70-99) 110 mg/dL (70-99) Calcium Level 8.7 mg/dL (8.5-10.1) 7.9 mg/dL (8.5-10.1) Total Bilirubin 0.3 mg/dL (0.2-1.0) Aspartate Amino Transf (AST/SGOT) 25 U/L (15-37) Alanine Aminotransferase (ALT/SGPT) 25 U/L (16-63) Alkaline Phosphatase 105 U/L (46-116) Total Protein 9.4 g/dL (6.4-8.2) Albumin 3.1 g/dL (3.4-5.0) Albumin/Globulin Ratio 0.5 (1.0-1.7) Stool Occult Blood Positive (NEG) FAROOQ YUEN APRN Jul 24, 2018 08:55
[2018-07-24] MEDS ORDERED: COPPER PO SCH (09:00)
[2018-07-24] MEDS ORDERED: ZINC PO SCH (09:00)
[2018-07-24] MEDS ORDERED: VIT C PO SCH (09:00)
[2018-07-24] MEDS ORDERED: NEFAZODONE 100 MG TABLET ONE (09:00)
[2018-07-24] MEDS ORDERED: VIT E PO SCH (09:00)
[2018-07-24] MEDS: LISINOPRIL 5 MG TABLET. PO SCH ×3 (09:00→13:34)
[2018-07-24] MEDS ORDERED: VIT A PO SCH (09:00)
--- NOTE | 2018-07-24 09:57 | RAD ---
KUB, 07/24/2018: HISTORY: Check kidney stone Gas is present in large and small bowel in a nonspecific pattern. The renal regions are largely obscured by overlying bowel. There are moderate scattered vascular calcifications.The small mid left ureteral calculus seen on yesterday's CT study is not visualized radiographically. It may be inseparable from vascular calcifications or may have passed. There is no evidence of organomegaly. Moderate scattered degenerative changes are present in the spine. IMPRESSION: No acute abdominal abnormality is detected. Electronically signed by: Andrew Cottrell MD (07/24/2018 9:54 AM) [facility]
[2018-07-24 10:39] VITALS: BP 128/69
--- NOTE | 2018-07-24 11:04 | PDOC ---
PROGRESS NOTES History of Present Illness History of Present Illness Assessment/Plan Assessment/Plan flank pain acute hematuria renal stone bladder mass, NOS UROLOGY consult admit w./ IV fluid TURP TOMORROW Htn Dm2, home meds, Vitals Vitals Vital Signs Date Time Temp Pulse Resp B/P (MAP) Pulse Ox O2 Delivery O2 Flow Rate FiO2 07/24/18 10:39 97.9 83 14 128/69 (88) 95 Room Air 97.9 Physical Exam General: Alert, Oriented X3, Cooperative, No acute distress Heart: Regular rate, Normal S1 Lungs: Clear Abdomen: Normal bowel sounds, Soft Extremities: No clubbing, No edema Skin: No breakdown, No significant lesion Labs LABS Laboratory Tests Test 07/24/18 03:40 White Blood Count 7.1 x10^3/uL (4.0-11.0) Red Blood Count 3.63 x10^6/uL (4.30-5.70) Hemoglobin 9.4 g/dL (13.0-17.5) Hematocrit 28.6 % (39.0-53.0) Mean Corpuscular Volume 79 fL (79-100) Mean Corpuscular Hemoglobin 26 pg (25-35) Mean Corpuscular Hemoglobin Concent 33 g/dL (31-37) Red Cell Distribution Width 15.5 % (11.5-14.5) Platelet Count 216 x10^3/uL (140-400) Neutrophils (%) (Auto) 70 % (31-73) Lymphocytes (%) (Auto) 19 % (24-48) Monocytes (%) (Auto) 8 % (0-9) Eosinophils (%) (Auto) 3 % (0-3) Basophils (%) (Auto) 0 % (0-3) Neutrophils # (Auto) 5.0 x10^3uL (1.8-7.7) Lymphocytes # (Auto) 1.4 x10^3/uL (1.0-4.8) Monocytes # (Auto) 0.5 x10^3/uL (0.0-1.1) Eosinophils # (Auto) 0.2 x10^3/uL (0.0-0.7) Basophils # (Auto) 0.0 x10^3/uL (0.0-0.2) Sodium Level 139 mmol/L (136-145) Potassium Level 3.9 mmol/L (3.5-5.1) Chloride Level 107 mmol/L (98-107) Carbon Dioxide Level 27 mmol/L (21-32) Anion Gap 5 (6-14) Blood Urea Nitrogen 10 mg/dL (8-26) Creatinine 0.8 mg/dL (0.7-1.3) Estimated GFR (Cockcroft-Gault) 95.0 Glucose Level 110 mg/dL (70-99) Calcium Level 7.9 mg/dL (8.5-10.1) Assessment and Plan Assessmemt and Plan Problems Medical Problems: (1) Lesion of bladder Status: Acute (2) Renal and ureteric calculus Status: Acute (3) UTI (urinary tract infection) Status: Acute Comment Review of Relevant I have reviewed the following items chavez (where applicable) has been applied. Labs Laboratory Tests Test 07/23/18 09:10 07/23/18 09:35 07/23/18 10:08 07/24/18 03:40 Urine Collection Type Unknown Urine Color Red Urine Clarity Bloody Urine pH 6.5 Urine Specific [place] 1.015 Urine Protein mg/dL (NEG-TRACE) Urine Glucose (UA) 100 mg/dL (NEG) Urine Ketones (Stick) mg/dL (NEG) Urine Blood Large (NEG) Urine Nitrite (NEG) Urine Bilirubin (NEG) Urine Urobilinogen Dipstick mg/dL (0.2 mg/dL) Urine Leukocyte Esterase Small (NEG) Urine RBC Tntc /HPF (0-2) Urine WBC Fobs /HPF (0-4) Urine Bacteria /HPF (0-FEW) White Blood Count 10.3 x10^3/uL (4.0-11.0) 7.1 x10^3/uL (4.0-11.0) Red Blood Count 4.29 x10^6/uL (4.30-5.70) 3.63 x10^6/uL (4.30-5.70) Hemoglobin 11.2 g/dL (13.0-17.5) 9.4 g/dL (13.0-17.5) Hematocrit 33.7 % (39.0-53.0) 28.6 % (39.0-53.0) Mean Corpuscular Volume 79 fL (79-100) 79 fL (79-100) Mean Corpuscular Hemoglobin 26 pg (25-35) 26 pg (25-35) Mean Corpuscular Hemoglobin Concent 33 g/dL (31-37) 33 g/dL (31-37) Red Cell Distribution Width 15.4 % (11.5-14.5) 15.5 % (11.5-14.5) Platelet Count 282 x10^3/uL (140-400) 216 x10^3/uL (140-400) Neutrophils (%) (Auto) 84 % (31-73) 70 % (31-73) Lymphocytes (%) (Auto) 8 % (24-48) 19 % (24-48) Monocytes (%) (Auto) 7 % (0-9) 8 % (0-9) Eosinophils (%) (Auto) 1 % (0-3) 3 % (0-3) Basophils (%) (Auto) 1 % (0-3) 0 % (0-3) Neutrophils # (Auto) 8.7 x10^3uL (1.8-7.7) 5.0 x10^3uL (1.8-7.7) Lymphocytes # (Auto) 0.8 x10^3/uL (1.0-4.8) 1.4 x10^3/uL (1.0-4.8) Monocytes # (Auto) 0.7 x10^3/uL (0.0-1.1) 0.5 x10^3/uL (0.0-1.1) Eosinophils # (Auto) 0.1 x10^3/uL (0.0-0.7) 0.2 x10^3/uL (0.0-0.7) Basophils # (Auto) 0.0 x10^3/uL (0.0-0.2) 0.0 x10^3/uL (0.0-0.2) Prothrombin Time 13.1 SEC (11.7-14.0) Prothromb Time International Ratio 1.0 (0.8-1.1) Activated Partial Thromboplast Time 28 SEC (24-38) Sodium Level 135 mmol/L (136-145) 139 mmol/L (136-145) Potassium Level 4.3 mmol/L (3.5-5.1) 3.9 mmol/L (3.5-5.1) Chloride Level 100 mmol/L (98-107) 107 mmol/L (98-107) Carbon Dioxide Level 29 mmol/L (21-32) 27 mmol/L (21-32) Anion Gap 6 (6-14) 5 (6-14) Blood Urea Nitrogen 14 mg/dL (8-26) 10 mg/dL (8-26) Creatinine 1.0 mg/dL (0.7-1.3) 0.8 mg/dL (0.7-1.3) Estimated GFR (Cockcroft-Gault) 73.5 95.0 BUN/Creatinine Ratio 14 (6-20) Glucose Level 139 mg/dL (70-99) 110 mg/dL (70-99) Calcium Level 8.7 mg/dL (8.5-10.1) 7.9 mg/dL (8.5-10.1) Total Bilirubin 0.3 mg/dL (0.2-1.0) Aspartate Amino Transf (AST/SGOT) 25 U/L (15-37) Alanine Aminotransferase (ALT/SGPT) 25 U/L (16-63) Alkaline Phosphatase 105 U/L (46-116) Total Protein 9.4 g/dL (6.4-8.2) Albumin 3.1 g/dL (3.4-5.0) Albumin/Globulin Ratio 0.5 (1.0-1.7) Stool Occult Blood Positive (NEG) Laboratory Tests Test 07/24/18 03:40 White Blood Count 7.1 x10^3/uL (4.0-11.0) Red Blood Count 3.63 x10^6/uL (4.30-5.70) Hemoglobin 9.4 g/dL (13.0-17.5) Hematocrit 28.6 % (39.0-53.0) Mean Corpuscular Volume 79 fL (79-100) Mean Corpuscular Hemoglobin 26 pg (25-35) Mean Corpuscular Hemoglobin Concent 33 g/dL (31-37) Red Cell Distribution Width 15.5 % (11.5-14.5) Platelet Count 216 x10^3/uL (140-400) Neutrophils (%) (Auto) 70 % (31-73) Lymphocytes (%) (Auto) 19 % (24-48) Monocytes (%) (Auto) 8 % (0-9) Eosinophils (%) (Auto) 3 % (0-3) Basophils (%) (Auto) 0 % (0-3) Neutrophils # (Auto) 5.0 x10^3uL (1.8-7.7) Lymphocytes # (Auto) 1.4 x10^3/uL (1.0-4.8) Monocytes # (Auto) 0.5 x10^3/uL (0.0-1.1) Eosinophils # (Auto) 0.2 x10^3/uL (0.0-0.7) Basophils # (Auto) 0.0 x10^3/uL (0.0-0.2) Sodium Level 139 mmol/L (136-145) Potassium Level 3.9 mmol/L (3.5-5.1) Chloride Level 107 mmol/L (98-107) Carbon Dioxide Level 27 mmol/L (21-32) Anion Gap 5 (6-14) Blood Urea Nitrogen 10 mg/dL (8-26) Creatinine 0.8 mg/dL (0.7-1.3) Estimated GFR (Cockcroft-Gault) 95.0 Glucose Level 110 mg/dL (70-99) Calcium Level 7.9 mg/dL (8.5-10.1) Medications Current Medications Sodium Chloride 1,000 ml @ 1,000 mls/hr 1X ONCE IV Last administered on at 09:59; Start 07/23/18 at 09:15; Stop 07/23/18 at 10:14; Status DC Fentanyl Citrate (Fentanyl 2ml Vial) 50 mcg 1X ONCE IV Last administered on 07/23/18at 10:08; Start 07/23/18 at 10:15; Stop 07/23/18 at 10:16; Status DC Ondansetron HCl (Zofran) 4 mg PRN Q8HRS PRN IV NAUSEA/VOMITING; Start 07/23/18 at 12:00; Stop 07/24/18 at 11:59 Fentanyl Citrate (Fentanyl 2ml Vial) 50 mcg PRN Q2HR PRN IV PAIN Last administered on 07/23/18at 22:31; Start 07/23/18 at 12:00; Stop 07/24/18 at 11:59 Sodium Chloride 1,000 ml @ 125 mls/hr Q8H IV Last administered on 07/24/18at 00: 43; Start 07/23/18 at 11:51; Stop 07/24/18 at 11:50 Acetaminophen (Tylenol) 650 mg PRN Q4HRS PRN PO FEVER; Start 07/23/18 at 12:00; Stop 07/24/18 at 11:59 Ceftriaxone Sodium 50 ml @ 100 mls/hr 1X ONCE IV ; Start 07/23/18 at 12:00; Stop 07/23/18 at 12:29; Status UNV Levofloxacin/ Dextrose 50 ml @ 50 mls/hr ONCE ONCE IV Last administered on 07/23at 12:54; Start 07/23/18 at 12:30; Stop 07/23/18 at 13:29; Status DC Ferrous Sulfate (Feosol) 325 mg DAILY08 PO Last administered on 07/23/18at 17:11 ; Start 07/23/18 at 16:00 Non-Formulary Medication (Dextroamphetamine/ Amphetamine (Dextroamp-Amphet Er 10 Mg Cap)) 1 cap DAILYWBKFT PO ; Start 07/24/18 at 08:00; Status UNV Duloxetine HCl (Cymbalta) 60 mg QHS PO Last administered on 07/23/18at 21:30; Start 07/23/18 at 21:00 Gabapentin (Neurontin) 300 mg QHS PO Last administered on 07/23/18at 21:29; Start 07/23/18 at 21:00 Lisinopril (Prinivil) 2.5 mg DAILY PO ; Start 07/23/18 at 16:00 Metformin HCl (Glucophage) 500 mg BIDWMEALS PO Last administered on 07/23/18at 17 :10; Start 07/23/18 at 17:00 Multivitamins/ Minerals (I-Caleb) 1 tab DAILY PO ; Start 07/23/18 at 16:00; Stop 07/23/18 at 16:00; Status DC Non-Formulary Medication (Nefazodone Hcl ) 0.5 tab DAILY07 PO ; Start 07/24/18 at 07:00; Status UNV Non-Formulary Medication (Nefazodone Hcl ) 1.5 tab DAILY16 PO ; Start 07/23/18 at 16:00; Status UNV Atorvastatin Calcium (Lipitor) 10 mg QHS PO Last administered on 07/23/18at 21:29 ; Start 07/23/18 at 21:00 Non-Formulary Medication (Vit A/Vit C/Vit E/Zinc/Copper (Preservision Areds Tablet)) 2 tab DAILY PO ; Start 07/24/18 at 09:00; Status UNV Multivitamins/ Minerals (I-Caleb) 2 tab DAILY PO ; Start 07/23/18 at 16:00 Tamsulosin HCl (Flomax) 0.4 mg DAILY PO Last administered on 07/23/18at 17:10; Start 07/23/18 at 16:15 Oxycodone HCl (Roxicodone) 5 mg PRN Q6HRS PRN PO PAIN SEVERE; Start 07/23/18 at 16:45 Acetaminophen (Tylenol) 650 mg BID PO Last administered on 07/23/18at 21:29; Start 07/23/18 at 21:00 Active Scripts Active Reported Vitamin B-12 (Cyanocobalamin (Vitamin B-12)) 1,000 Mcg Tablet 1 Tab PO DAILY Ferrous Sulfate 325 Mg Tablet 1 Tab PO DAILY Preservision Areds Tablet (Vit A/Vit C/Vit E/Zinc/Copper) 1 Each Tablet 2 Tab PO DAILY Centrum Silver Men Tablet (Multivit-Min/FA/Lycopen/Lutein) 1 Each Tablet 1 Each PO DAILY Dextroamp-Amphet Er 10 Mg Cap (Dextroamphetamine/Amphetamine) 10 Mg Cap.er.24h 1 Cap PO DAILYWBKFT Aspirin Ec (Aspirin) 81 Mg Tablet.dr 1 Tab PO DAILY Livalo (Pitavastatin Calcium) 4 Mg Tablet 0.5 Tab PO DAILY Lisinopril 5 Mg Tablet 0.5 Tab PO DAILY Gabapentin 300 Mg Capsule 300 Mg PO HS Metformin Hcl 500 Mg Tablet 500 Mg PO BIDWMEALS Cymbalta (Duloxetine Hcl) 60 Mg Capsule.dr 60 Mg PO HS Nefazodone Hcl 150 Mg Tablet 1.5 Tab PO DAILY16 Nefazodone Hcl 150 Mg Tablet 0.5 Tab PO DAILY07 Vitals/I & O Vital Sign - Last 24 Hours 07/23/18 07/23/18 07/23/18 07/23/18 11:48 13:40 14:00 14:32 Temp 95.7 95.7 Pulse 70 74 Resp 18 B/P (MAP) 109/69 (82) 118/71 (87) Pulse Ox 94 98 O2 Delivery Room Air Room Air Room Air 07/23/18 07/23/18 07/23/18 07/23/18 16:00 18:49 19:00 19:10 Temp 98.3 98.3 Pulse 74 72 Resp 18 B/P (MAP) 118/71 97/60 (72) Pulse Ox 97 O2 Delivery Room Air Room Air Room Air 07/23/18 07/24/18 07/24/18 07/24/18 23:00 03:00 07:00 10:39 Temp 98.1 97.6 97.7 97.9 98.1 97.6 97.7 97.9 Pulse 71 69 76 83 Resp 18 18 14 14 B/P (MAP) 112/61 (78) 104/60 (75) 118/76 (90) 128/69 (88) Pulse Ox 100 96 96 95 O2 Delivery Room Air Room Air Room Air Room Air Intake and Output 07/23/18 07/23/18 07/24/18 15:00 23:00 07:00 Intake Total 1000 ml 1725 ml Output Total 325 ml 325 ml Balance 1000 ml -325 ml 1400 ml ROSANNA PARSON MD Jul 24, 2018 11:04
[2018-07-24] MEDS: TAMSULOSIN 0.4 MG CAP.ER.24H. PO SCH (13:25)
[2018-07-24] MEDS: metFORMIN 500 MG TABLET PO SCH ×2 (13:25→17:00)
[2018-07-24] MEDS: FERROUS SULFATE 325 MG TABLET. PO SCH (13:25)
[2018-07-24] MEDS: ACETAMINOPHEN 325 MG TABLET. PO SCH ×2 (13:31→21:00)
[2018-07-24] MEDS: MULTIVITAMIN I-VITE TABLET. PO SCH (13:31)
[2018-07-24 15:00] VITALS: BP 128/49
[2018-07-24 19:00] VITALS: BP 149/85
[2018-07-24] MEDS: DULoxetine HCL 30 MG CAPSULE.DR PO SCH (22:30)
[2018-07-24] MEDS: ATORVASTATIN CALCIUM 10 MG TABLET. PO SCH (22:30)
[2018-07-24] MEDS: GABAPENTIN 300 MG CAPSULE. PO SCH (22:31)
[2018-07-24 23:00] VITALS: BP 137/82
[2018-07-25] VITALS (12 sets, daily range): BP systolic 112–135; BP diastolic 52–83
--- NOTE | 2018-07-25 04:43 | PDOC ---
PROGRESS NOTES History of Present Illness History of Present Illness Assessment/Plan Assessment/Plan flank pain acute hematuria renal stone bladder mass, NOS UROLOGY consult admit w./ IV fluid TURP TOMORROW Htn Dm2, home meds, Vitals Vitals Vital Signs Date Time Temp Pulse Resp B/P (MAP) Pulse Ox O2 Delivery O2 Flow Rate FiO2 07/24/18 23:00 97.9 82 14 137/82 (100) 96 Room Air 97.9 Physical Exam General: Alert, Oriented X3, Cooperative, No acute distress Heart: Regular rate, Normal S1 Lungs: Clear Abdomen: Normal bowel sounds, Soft Extremities: No clubbing, No cyanosis, No edema Skin: No rashes, No breakdown, No significant lesion Assessment and Plan Assessmemt and Plan Problems Medical Problems: (1) Lesion of bladder Status: Acute (2) Renal and ureteric calculus Status: Acute (3) UTI (urinary tract infection) Status: Acute Comment Review of Relevant I have reviewed the following items chavez (where applicable) has been applied. Labs Laboratory Tests Test 07/23/18 09:10 07/23/18 09:35 07/23/18 10:08 07/24/18 03:40 Urine Collection Type Unknown Urine Color Red Urine Clarity Bloody Urine pH 6.5 Urine Specific [place] 1.015 Urine Protein mg/dL (NEG-TRACE) Urine Glucose (UA) 100 mg/dL (NEG) Urine Ketones (Stick) mg/dL (NEG) Urine Blood Large (NEG) Urine Nitrite (NEG) Urine Bilirubin (NEG) Urine Urobilinogen Dipstick mg/dL (0.2 mg/dL) Urine Leukocyte Esterase Small (NEG) Urine RBC Tntc /HPF (0-2) Urine WBC Fobs /HPF (0-4) Urine Bacteria /HPF (0-FEW) White Blood Count 10.3 x10^3/uL (4.0-11.0) 7.1 x10^3/uL (4.0-11.0) Red Blood Count 4.29 x10^6/uL (4.30-5.70) 3.63 x10^6/uL (4.30-5.70) Hemoglobin 11.2 g/dL (13.0-17.5) 9.4 g/dL (13.0-17.5) Hematocrit 33.7 % (39.0-53.0) 28.6 % (39.0-53.0) Mean Corpuscular Volume 79 fL (79-100) 79 fL (79-100) Mean Corpuscular Hemoglobin 26 pg (25-35) 26 pg (25-35) Mean Corpuscular Hemoglobin Concent 33 g/dL (31-37) 33 g/dL (31-37) Red Cell Distribution Width 15.4 % (11.5-14.5) 15.5 % (11.5-14.5) Platelet Count 282 x10^3/uL (140-400) 216 x10^3/uL (140-400) Neutrophils (%) (Auto) 84 % (31-73) 70 % (31-73) Lymphocytes (%) (Auto) 8 % (24-48) 19 % (24-48) Monocytes (%) (Auto) 7 % (0-9) 8 % (0-9) Eosinophils (%) (Auto) 1 % (0-3) 3 % (0-3) Basophils (%) (Auto) 1 % (0-3) 0 % (0-3) Neutrophils # (Auto) 8.7 x10^3uL (1.8-7.7) 5.0 x10^3uL (1.8-7.7) Lymphocytes # (Auto) 0.8 x10^3/uL (1.0-4.8) 1.4 x10^3/uL (1.0-4.8) Monocytes # (Auto) 0.7 x10^3/uL (0.0-1.1) 0.5 x10^3/uL (0.0-1.1) Eosinophils # (Auto) 0.1 x10^3/uL (0.0-0.7) 0.2 x10^3/uL (0.0-0.7) Basophils # (Auto) 0.0 x10^3/uL (0.0-0.2) 0.0 x10^3/uL (0.0-0.2) Prothrombin Time 13.1 SEC (11.7-14.0) Prothromb Time International Ratio 1.0 (0.8-1.1) Activated Partial Thromboplast Time 28 SEC (24-38) Sodium Level 135 mmol/L (136-145) 139 mmol/L (136-145) Potassium Level 4.3 mmol/L (3.5-5.1) 3.9 mmol/L (3.5-5.1) Chloride Level 100 mmol/L (98-107) 107 mmol/L (98-107) Carbon Dioxide Level 29 mmol/L (21-32) 27 mmol/L (21-32) Anion Gap 6 (6-14) 5 (6-14) Blood Urea Nitrogen 14 mg/dL (8-26) 10 mg/dL (8-26) Creatinine 1.0 mg/dL (0.7-1.3) 0.8 mg/dL (0.7-1.3) Estimated GFR (Cockcroft-Gault) 73.5 95.0 BUN/Creatinine Ratio 14 (6-20) Glucose Level 139 mg/dL (70-99) 110 mg/dL (70-99) Calcium Level 8.7 mg/dL (8.5-10.1) 7.9 mg/dL (8.5-10.1) Total Bilirubin 0.3 mg/dL (0.2-1.0) Aspartate Amino Transf (AST/SGOT) 25 U/L (15-37) Alanine Aminotransferase (ALT/SGPT) 25 U/L (16-63) Alkaline Phosphatase 105 U/L (46-116) Total Protein 9.4 g/dL (6.4-8.2) Albumin 3.1 g/dL (3.4-5.0) Albumin/Globulin Ratio 0.5 (1.0-1.7) Stool Occult Blood Positive (NEG) Microbiology 07/23/18 Urine Culture - Final, Complete 07/23/18 Urine Culture Result 1 (CHULA) - Final, Complete Medications Current Medications Sodium Chloride 1,000 ml @ 1,000 mls/hr 1X ONCE IV Last administered on at 09:59; Start 07/23/18 at 09:15; Stop 07/23/18 at 10:14; Status DC Fentanyl Citrate (Fentanyl 2ml Vial) 50 mcg 1X ONCE IV Last administered on 07/23/18at 10:08; Start 07/23/18 at 10:15; Stop 07/23/18 at 10:16; Status DC Ondansetron HCl (Zofran) 4 mg PRN Q8HRS PRN IV NAUSEA/VOMITING; Start 07/23/18 at 12:00; Stop 07/24/18 at 11:59; Status DC Fentanyl Citrate (Fentanyl 2ml Vial) 50 mcg PRN Q2HR PRN IV PAIN Last administered on 07/23/18at 22:31; Start 07/23/18 at 12:00; Stop 07/24/18 at 11:59; Status DC Sodium Chloride 1,000 ml @ 125 mls/hr Q8H IV Last administered on 07/24/18at 00: 43; Start 07/23/18 at 11:51; Stop 07/24/18 at 11:50; Status DC Acetaminophen (Tylenol) 650 mg PRN Q4HRS PRN PO FEVER; Start 07/23/18 at 12:00; Stop 07/24/18 at 11:59; Status DC Ceftriaxone Sodium 50 ml @ 100 mls/hr 1X ONCE IV ; Start 07/23/18 at 12:00; Stop 07/23/18 at 12:29; Status UNV Levofloxacin/ Dextrose 50 ml @ 50 mls/hr ONCE ONCE IV Last administered on 07/23at 12:54; Start 07/23/18 at 12:30; Stop 07/23/18 at 13:29; Status DC Ferrous Sulfate (Feosol) 325 mg DAILY08 PO Last administered on 07/24/18at 13:25 ; Start 07/23/18 at 16:00 Non-Formulary Medication (Dextroamphetamine/ Amphetamine (Dextroamp-Amphet Er 10 Mg Cap)) 1 cap DAILYWBKFT PO ; Start 07/24/18 at 08:00; Status UNV Duloxetine HCl (Cymbalta) 60 mg QHS PO Last administered on 07/24/18at 22:30; Start 07/23/18 at 21:00 Gabapentin (Neurontin) 300 mg QHS PO Last administered on 07/24/18at 22:31; Start 07/23/18 at 21:00 Lisinopril (Prinivil) 2.5 mg DAILY PO ; Start 07/23/18 at 16:00 Metformin HCl (Glucophage) 500 mg BIDWMEALS PO Last administered on 07/24/18at 13 :25; Start 07/23/18 at 17:00 Multivitamins/ Minerals (I-Caleb) 1 tab DAILY PO ; Start 07/23/18 at 16:00; Stop 07/23/18 at 16:00; Status DC Non-Formulary Medication (Nefazodone Hcl ) 0.5 tab DAILY07 PO Last administered on 07/24/18at 07:00; Start 07/24/18 at 07:00; Status UNV Non-Formulary Medication (Nefazodone Hcl ) 1.5 tab DAILY16 PO ; Start 07/23/18 at 16:00; Status UNV Atorvastatin Calcium (Lipitor) 10 mg QHS PO Last administered on 07/24/18at 22:30 ; Start 07/23/18 at 21:00 Non-Formulary Medication (Vit A/Vit C/Vit E/Zinc/Copper (Preservision Areds Tablet)) 2 tab DAILY PO ; Start 07/24/18 at 09:00; Status UNV Multivitamins/ Minerals (I-Caleb) 2 tab DAILY PO Last administered on 07/24/18at 13:31; Start 07/23/18 at 16:00 Tamsulosin HCl (Flomax) 0.4 mg DAILY PO Last administered on 07/24/18at 13:25; Start 07/23/18 at 16:15 Oxycodone HCl (Roxicodone) 5 mg PRN Q6HRS PRN PO PAIN SEVERE; Start 07/23/18 at 16:45 Acetaminophen (Tylenol) 650 mg BID PO Last administered on 07/24/18at 13:31; Start 07/23/18 at 21:00 Ondansetron HCl (Zofran) 4 mg PRN Q6HRS PRN IV NAUSEA/VOMITING; Start 07/25/18 at 07:00; Stop 07/26/18 at 06:59 Morphine Sulfate (Morphine Sulfate) 1 mg PRN Q10MIN PRN IV SEVERE PAIN; Start 07/25/18 at 07:00; Stop 07/26/18 at 06:59 Ringer's Solution 1,000 ml @ 30 mls/hr Q24H IV ; Start 07/25/18 at 07:00; Stop 07/25/18 at 18:59 Lidocaine HCl (Xylocaine-Mpf 1% 2ml Vial) 2 ml PRN 1X PRN ID IV START; Start at 07:00; Stop 07/26/18 at 06:59 Hydromorphone HCl (Dilaudid) 0.5 mg PRN Q10MIN PRN IV SEV PAIN, Second choice; Start 07/25/18 at 07:00; Stop 07/26/18 at 06:59 Prochlorperazine Edisylate (Compazine) 5 mg PACU PRN PRN IV NAUSEA, MRX1; Start 07/25/18 at 07:00; Stop 07/26/18 at 06:59 Active Scripts Active Reported Vitamin B-12 (Cyanocobalamin (Vitamin B-12)) 1,000 Mcg Tablet 1 Tab PO DAILY Ferrous Sulfate 325 Mg Tablet 1 Tab PO DAILY Preservision Areds Tablet (Vit A/Vit C/Vit E/Zinc/Copper) 1 Each Tablet 2 Tab PO DAILY Centrum Silver Men Tablet (Multivit-Min/FA/Lycopen/Lutein) 1 Each Tablet 1 Each PO DAILY Dextroamp-Amphet Er 10 Mg Cap (Dextroamphetamine/Amphetamine) 10 Mg Cap.er.24h 1 Cap PO DAILYWBKFT Aspirin Ec (Aspirin) 81 Mg Tablet.dr 1 Tab PO DAILY Livalo (Pitavastatin Calcium) 4 Mg Tablet 0.5 Tab PO DAILY Lisinopril 5 Mg Tablet 0.5 Tab PO DAILY Gabapentin 300 Mg Capsule 300 Mg PO HS Metformin Hcl 500 Mg Tablet 500 Mg PO BIDWMEALS Cymbalta (Duloxetine Hcl) 60 Mg Capsule.dr 60 Mg PO HS Nefazodone Hcl 150 Mg Tablet 1.5 Tab PO DAILY16 Nefazodone Hcl 150 Mg Tablet 0.5 Tab PO DAILY07 Vitals/I & O Vital Sign - Last 24 Hours 07/24/18 07/24/18 07/24/18 07/24/18 07:00 08:00 10:39 15:00 Temp 97.7 97.9 98.2 97.7 97.9 98.2 Pulse 76 83 78 Resp 14 14 14 B/P (MAP) 118/76 (90) 128/69 (88) 128/49 (75) Pulse Ox 96 95 96 O2 Delivery Room Air Room Air Room Air Room Air 07/24/18 07/24/18 07/24/18 19:00 20:00 23:00 Temp 98.6 97.9 98.6 97.9 Pulse 81 82 Resp 14 14 B/P (MAP) 149/85 (106) 137/82 (100) Pulse Ox 96 96 O2 Delivery Room Air Room Air Room Air Intake and Output 07/24/18 07/24/18 07/25/18 15:00 23:00 07:00 Intake Total 120 ml Output Total 1025 ml Balance -1025 ml 120 ml ROSANNA PARSON MD Jul 25, 2018 04:43
[2018-07-25 06:57] LABS: BASO % 0 % (0-3); EOS # 0.2 x10^3/uL (0.0-0.7); EOS % 3 % (0-3); HEMATOCRIT 30.3 % (39.0-53.0); HEMOGLOBIN 10.1 g/dL (13.0-17.5); LYMPH # 1.1 x10^3/uL (1.0-4.8); LYMPH % 14 % (24-48); MEAN CORPUSCULAR HEMOGLOBIN 26 pg (25-35); MEAN CORPUSCULAR HGB CONC 33 g/dL (31-37); MEAN CORPUSCULAR VOLUME 78 fL (79-100); MONO # 0.7 x10^3/uL (0.0-1.1); MONO % 9 % (0-9); NEUT # 5.7 x10^3uL (1.8-7.7); NEUT % 74 % (31-73); PLATELET COUNT 221 x10^3/uL (140-400); RED BLOOD COUNT 3.87 x10^6/uL (4.30-5.70); WHITE BLOOD COUNT 7.8 x10^3/uL (4.0-11.0)
[2018-07-25] MEDS ORDERED: LIDOCAINE 1% PF 2 ML VIAL. ID PRN (07:00)
[2018-07-25] MEDS ORDERED: MORPHINE SULFATE 2 MG/ML VIAL. IV PRN (07:00)
[2018-07-25] MEDS: NEFAZODONE HCL PO SCH (07:00)
[2018-07-25] MEDS ORDERED: ONDANSETRON PF 4 MG/2 ML VIAL. IV PRN (07:00)
[2018-07-25] MEDS ORDERED: IV RINGERS,LACTATED 1000ML 1,000 ML IV SCH (07:00)
[2018-07-25] MEDS ORDERED: HYDROmorphone 2 MG/ML VIAL IV PRN (07:00)
[2018-07-25] MEDS ORDERED: PROCHLORPERAZINE 10 MG/2 ML VIAL. IV PRN (07:00)
[2018-07-25 07:31] LABS: ALBUMIN 2.4 g/dL (3.4-5.0); ALBUMIN/GLOBULIN RATIO 0.4 (1.0-1.7); CREATININE 0.8 mg/dL (0.7-1.3); POTASSIUM 3.8 mmol/L (3.5-5.1); TOTAL BILIRUBIN 0.3 mg/dL (0.2-1.0); TOTAL PROTEIN 7.8 g/dL (6.4-8.2)
[2018-07-25] MEDS: metFORMIN 500 MG TABLET PO SCH ×2 (08:00→17:38)
[2018-07-25] MEDS: FERROUS SULFATE 325 MG TABLET. PO SCH ×2 (08:00→22:28)
[2018-07-25] MEDS: MULTIVITAMIN I-VITE TABLET. PO SCH (09:00)
[2018-07-25] MEDS: ACETAMINOPHEN 325 MG TABLET. PO SCH ×2 (09:00→21:00)
[2018-07-25] MEDS: TAMSULOSIN 0.4 MG CAP.ER.24H. PO SCH (09:00)
--- NOTE | 2018-07-25 10:52 | PDOC2 ---
GI CONSULT Reason For Consult: + fecal occult HPI: HPI: 72 y/o male admitted w/ flank pain and hematuria. CT showed mild left-sided hydronephrosis and hydroureter due to a left mid ureteral stone and nodule of urinary bladder. TURBT planned today w/ urology. GI consulted re: positive fecal occult. Admitting Hgb was 11.2, then 9.4, now 10.1 MCV is 78, RDW 15, BUN 7, Cr 1.1, plt and INR WNL. He reports h/o anemia treated w/ iron and B12 intermittently over the years - currently taking iron QD. At one point had some rectal bleeding/red blood in stool but "not for years." Takes Tums rarely for indigestion, also takes Pepto-Bismol occasionally for diarrhea but typically no issues w/ either this or constipation. Denies melena , n/v, reflux, and dysphagia. Has lost 15 lbs unintentionally since 09/2017, notes he eats less with age. In general, fatigue for awhile - thought a chiropractor helped for awhile, also thinks Adderall helps. No previous EGD. Last colonoscopy 01/2013 (Dr. Rainey @ [facility]) showed four adenomatous and hyperplastic polyps. No GB, liver, or pancreas history. Chronic back pain w/ regular ibuprofen use, also takes ASA 81mg. PMH: PMH: HTN, HLD, lung cancer (adenocarcinoma w/ neg lymph nodes) s/p RL lobectomy, DM w / PN, depression, nephrolithiasis, UTI, DDD, left wrist surgery FH: Family History: Other ("I don't know") Social History: Smoke: Quit ALCOHOL: rare (drank some in the [email or web address], rarely now) Drugs: None ROS: GEN: +fatigue HEENT: Denies blurred vision, sore throat CV: Denies chest pain RESP: Denies shortness of air, cough GI: Per HPI : Denies hematuria, dysuria ENDO: +weight loss NEURO: Denies confusion, dizziness MSK: +chronic back pain SKIN: Denies jaundice, pruritus Vitals: Vitals: Vital Signs Date Time Temp Pulse Resp B/P (MAP) Pulse Ox O2 Delivery O2 Flow Rate FiO2 07/25/18 08:00 Room Air 07/25/18 07:00 97.9 79 19 135/74 (94) 97 97.9 Labs: Labs: Laboratory Tests Test 07/25/18 06:27 White Blood Count 7.8 x10^3/uL (4.0-11.0) Red Blood Count 3.87 x10^6/uL (4.30-5.70) Hemoglobin 10.1 g/dL (13.0-17.5) Hematocrit 30.3 % (39.0-53.0) Mean Corpuscular Volume 78 fL (79-100) Mean Corpuscular Hemoglobin 26 pg (25-35) Mean Corpuscular Hemoglobin Concent 33 g/dL (31-37) Red Cell Distribution Width 15.0 % (11.5-14.5) Platelet Count 221 x10^3/uL (140-400) Neutrophils (%) (Auto) 74 % (31-73) Lymphocytes (%) (Auto) 14 % (24-48) Monocytes (%) (Auto) 9 % (0-9) Eosinophils (%) (Auto) 3 % (0-3) Basophils (%) (Auto) 0 % (0-3) Neutrophils # (Auto) 5.7 x10^3uL (1.8-7.7) Lymphocytes # (Auto) 1.1 x10^3/uL (1.0-4.8) Monocytes # (Auto) 0.7 x10^3/uL (0.0-1.1) Eosinophils # (Auto) 0.2 x10^3/uL (0.0-0.7) Basophils # (Auto) 0.0 x10^3/uL (0.0-0.2) Sodium Level 138 mmol/L (136-145) Potassium Level 3.8 mmol/L (3.5-5.1) Chloride Level 104 mmol/L (98-107) Carbon Dioxide Level 27 mmol/L (21-32) Anion Gap 7 (6-14) Blood Urea Nitrogen 11 mg/dL (8-26) Creatinine 0.8 mg/dL (0.7-1.3) Estimated GFR (Cockcroft-Gault) 95.0 BUN/Creatinine Ratio 14 (6-20) Glucose Level 100 mg/dL (70-99) Calcium Level 8.0 mg/dL (8.5-10.1) Total Bilirubin 0.3 mg/dL (0.2-1.0) Aspartate Amino Transf (AST/SGOT) 20 U/L (15-37) Alanine Aminotransferase (ALT/SGPT) 18 U/L (16-63) Alkaline Phosphatase 83 U/L (46-116) Total Protein 7.8 g/dL (6.4-8.2) Albumin 2.4 g/dL (3.4-5.0) Albumin/Globulin Ratio 0.4 (1.0-1.7) Allergies: Coded Allergies: Penicillins (Verified Allergy, Severe, 07/23/18) states "i was told it will kill me"; presume anaphylaxis Medications: Please see EMR. Imaging: Imaging: CT A/P 07/23 IMPRESSION: Mild left-sided hydronephrosis and hydroureter due to a left mid ureteral stone located at the level of L4-5 and measuring 5 mm. Bilateral renal stones are seen. Wall thickening of the colon and terminal ileum which may be seen with inflammatory or infectious enterocolitis. 11 mm nodule of the urinary bladder wall which could represent a neoplasm. Hyperdense material is seen within the posterior urinary bladder which may represent blood. Small loculated pleural effusion and scarring of the right lung field which may be related to previous surgery given the patient's history of lung cancer. KUB 07/24 IMPRESSION: No acute abdominal abnormality is detected. PE: GEN: NAD HEENT: Atraumatic, PERRL LUNGS: diminished anteriorly HEART: RRR ABD: NABS, S/ND/NT EXTREMITY: No edema SKIN: No rashes, no jaundice NEURO/PSYCH: A & O 3 A/P: A/P: Flank pain, hematuria Left hydronephrosis, hydroureter, left ureteral stone, bladder nodule Microcytic anemia, + fecal occult Unintentional weight loss CRC screen, h/o adenomatous polyps - last colonoscopy 01/2013 NSAID use H/o lung cancer Abnormal CT - wall thickening of the colon and TI ---> NO diarrhea, pain, or bleeding currently -- Continue per urology - TURBT planned for today. He has plans to follow-up w/ established custodial worker in 09/2018 for colonoscopy - would keep this appointment and consider tandem EGD. Will check anemia parameters and add empiric PPI. SIOMARA WEST Jul 25, 2018 10:52
[2018-07-25] MEDS ORDERED: LIDOCAINE 2% PF Vial for OR 5 ML VIAL. ONE (13:45)
[2018-07-25] MEDS ORDERED: fentaNYL PF VIAL 100 MCG/2 ML VIAL ONE (13:45)
[2018-07-25] MEDS ORDERED: PROPOFOL 20 ML IV ONE (13:45)
[2018-07-25] MEDS ORDERED: CIPROFLOXACIN 400MG PREMIX 200 ML IV ONE (14:00)
[2018-07-25] MEDS ORDERED: NEFAZODONE HCL 100 MG PO SCH (15:09)
[2018-07-25] MEDS ORDERED: DEXAMETHASONE SOD PHOS 20 MG/5 ML VIAL. ONE (15:40)
[2018-07-25] MEDS ORDERED: ONDANSETRON PF 4 MG/2 ML VIAL. ONE (15:40)
[2018-07-25] MEDS ORDERED: NEFAZODONE 100 MG TABLET ONE (16:00)
[2018-07-25] MEDS ORDERED: LIDOCAINE 2% JELLY 6ML IN APPLICATOR. MM ONE (16:03)
--- NOTE | 2018-07-25 16:07 | PDOC4 ---
OPERATIVE NOTE Pre-Op Diagnosis: gh BT Post-Op Diagnosis: SAME Procedure Performed: cysto, small turbt Surgeon: Anesthesia Type: ga Blood Loss: 1ml Specimans Obtained: BT Findings: left dome small BT. Complications: none evident DEEDEE CORTES MD Jul 25, 2018 16:07
[2018-07-25] MEDS ORDERED: LIDOCAINE 2% JELLY 6ML IN APPLICATOR. ONE (17:34)
[2018-07-25] MEDS: PANTOPRAZOLE 40 MG TABLET.DR. PO SCH (17:38)
--- NOTE | 2018-07-25 17:56 | OP ---
DATE OF SURGERY: PREOPERATIVE DIAGNOSES: Gross hematuria, bladder tumor. POSTOPERATIVE DIAGNOSES: Gross hematuria, bladder tumor. PROCEDURE: Cystoscopy with small TURBT. SURGEON: Maia Carter MD. ANESTHESIA: General. CONDITION: Stable. COMPLICATIONS: None. ESTIMATED BLOOD LOSS: 1 mL. FINDINGS: A very small flat left dome bladder tumor. This was removed with foreign body graspers and was fulgurated with ease. No evidence of residual or other tumors noted in the bladder. PROCEDURE IN DETAIL: The patient was taken back to the procedure room and placed under general anesthesia in the supine position per the protocol. His preexisting catheter was removed. He was prepped and draped in the usual sterile fashion in dorsal lithotomy position. Timeout was performed. SCDs were attached. IV antibiotics were administered. A 21-Gambian cystoscope was passed through the bladder. Careful system review of the bladder visualized a very flat, low-grade appearing papillary lesion noted at left dome of the bladder. This was deemed about 1-2 cm. This was easily grasped with a foreign body grasper and specimen was sent for pathology. A Bugbee was used to fulgurate for hemostasis and complete tumor destruction. Upon final inspection, there was no evidence of any clots. There was no evidence of other tumors. Bladder was emptied. Uro-Jet was applied to the urethra. The patient was awakened and taken to PACU in stable condition. DISPOSITION: Will be discharged to home later today or in the morning and follow up with me in 10 days for pathology results. MAIA CARTER MD DR: CHELY/jerica JOB#: [id number] / [id number]
[2018-07-25] MEDS: ATORVASTATIN CALCIUM 10 MG TABLET. PO SCH (22:28)
[2018-07-25] MEDS: DULoxetine HCL 30 MG CAPSULE.DR PO SCH (22:29)
[2018-07-25] MEDS: GABAPENTIN 300 MG CAPSULE. PO SCH (22:30)
[2018-07-26 03:00] VITALS: BP 112/55
[2018-07-26 07:00] VITALS: BP 93/73
[2018-07-26] MEDS: PANTOPRAZOLE 40 MG TABLET.DR. PO SCH (07:25)
[2018-07-26 08:15] VITALS: BP 114/67
[2018-07-26] MEDS: MULTIVITAMIN I-VITE TABLET. PO SCH (08:16)
[2018-07-26] MEDS: metFORMIN 500 MG TABLET PO SCH (08:16)
[2018-07-26] MEDS: ACETAMINOPHEN 325 MG TABLET. PO SCH ×2 (08:16→09:00)
[2018-07-26] MEDS: TAMSULOSIN 0.4 MG CAP.ER.24H. PO SCH (08:16)
[2018-07-26] MEDS: FERROUS SULFATE 325 MG TABLET. PO SCH (08:16)
[2018-07-26] MEDS ORDERED: NEFAZODONE 100 MG TABLET ONE (09:00)
[2018-07-26] MEDS ORDERED: CYANOCOBALAMIN (VITAMIN B-12) 100 MCG TABLET PO SCH (09:00)
--- NOTE | 2018-07-26 10:00 | PDOC ---
Subjective: Subjective: Feeling great, hopeful to DC today. +hematuria Objective: Vital Signs: Vital Signs Date Time Temp Pulse Resp B/P (MAP) Pulse Ox O2 Delivery O2 Flow Rate FiO2 07/26/18 07:00 98.1 64 16 93/73 (80) 98 98.1 07/26/18 03:00 Room Air 07/25/18 16:41 10 Labs: Laboratory Tests Test 07/25/18 14:37 07/25/18 16:16 Glucose (Fingerstick) 86 mg/dL 130 mg/dL PE: GEN: NAD, walking around room LUNGS: CTAB HEART: RRR ABD: S/ND/NT NEURO/PSYCH: A & O 3 A/P: S/p TURBT Anemia ---> +fecal occult, iron and B12 deficient -- DC per primary and urology. 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 Rainey, for screening colonoscopy and tandem EGD later this year. Continue PO iron and B12, would also continue PPI considering NSAID and ASA use. SIOMARA WEST Jul 26, 2018 09:59
[2018-07-26 10:52] VITALS: BP 135/69
--- NOTE | 2018-07-26 11:39 | PDOC ---
PROGRESS NOTES History of Present Illness History of Present Illness Assessment/Plan Assessment/Plan flank pain hematuria renal stone bladder mass, NOS UROLOGY , home if ok with them TURP pod # 1 Htn Dm2, home meds, Vitals Vitals Vital Signs Date Time Temp Pulse Resp B/P (MAP) Pulse Ox O2 Delivery O2 Flow Rate FiO2 07/26/18 10:52 97.2 65 18 135/69 (91) 98 Room Air 97.2 07/25/18 16:41 10 Physical Exam General: Alert, Oriented X3, Cooperative, No acute distress Heart: Regular rate, Normal S1, Normal S2 Lungs: Clear Abdomen: Normal bowel sounds, Soft, No hepatosplenomegaly Extremities: No clubbing, No cyanosis, No edema Skin: No rashes, No breakdown, No significant lesion Labs LABS Laboratory Tests Test 07/25/18 14:37 07/25/18 16:16 Glucose (Fingerstick) 86 mg/dL (70-99) 130 mg/dL (70-99) Assessment and Plan Assessmemt and Plan Problems Medical Problems: (1) Lesion of bladder Status: Acute (2) Renal and ureteric calculus Status: Acute (3) UTI (urinary tract infection) Status: Acute Comment Review of Relevant I have reviewed the following items chavez (where applicable) has been applied. Labs Laboratory Tests Test 07/25/18 06:27 07/25/18 14:37 07/25/18 16:16 White Blood Count 7.8 x10^3/uL (4.0-11.0) Red Blood Count 3.87 x10^6/uL (4.30-5.70) Hemoglobin 10.1 g/dL (13.0-17.5) Hematocrit 30.3 % (39.0-53.0) Mean Corpuscular Volume 78 fL (79-100) Mean Corpuscular Hemoglobin 26 pg (25-35) Mean Corpuscular Hemoglobin Concent 33 g/dL (31-37) Red Cell Distribution Width 15.0 % (11.5-14.5) Platelet Count 221 x10^3/uL (140-400) Neutrophils (%) (Auto) 74 % (31-73) Lymphocytes (%) (Auto) 14 % (24-48) Monocytes (%) (Auto) 9 % (0-9) Eosinophils (%) (Auto) 3 % (0-3) Basophils (%) (Auto) 0 % (0-3) Neutrophils # (Auto) 5.7 x10^3uL (1.8-7.7) Lymphocytes # (Auto) 1.1 x10^3/uL (1.0-4.8) Monocytes # (Auto) 0.7 x10^3/uL (0.0-1.1) Eosinophils # (Auto) 0.2 x10^3/uL (0.0-0.7) Basophils # (Auto) 0.0 x10^3/uL (0.0-0.2) Reticulocyte Count (auto) 1.0 % (0.5-2.5) Sodium Level 138 mmol/L (136-145) Potassium Level 3.8 mmol/L (3.5-5.1) Chloride Level 104 mmol/L (98-107) Carbon Dioxide Level 27 mmol/L (21-32) Anion Gap 7 (6-14) Blood Urea Nitrogen 11 mg/dL (8-26) Creatinine 0.8 mg/dL (0.7-1.3) Estimated GFR (Cockcroft-Gault) 95.0 BUN/Creatinine Ratio 14 (6-20) Glucose Level 100 mg/dL (70-99) Calcium Level 8.0 mg/dL (8.5-10.1) Iron Level 23 ug/dL (65-175) Total Iron Binding Capacity 306 ug/dL (250-450) Iron Saturation 8 % (15-34) Total Bilirubin 0.3 mg/dL (0.2-1.0) Aspartate Amino Transf (AST/SGOT) 20 U/L (15-37) Alanine Aminotransferase (ALT/SGPT) 18 U/L (16-63) Alkaline Phosphatase 83 U/L (46-116) Total Protein 7.8 g/dL (6.4-8.2) Albumin 2.4 g/dL (3.4-5.0) Albumin/Globulin Ratio 0.4 (1.0-1.7) Vitamin B12 Level 238 pg/mL (247-911) Serum Folate 6.48 ng/ml (3.2-20.0) Glucose (Fingerstick) 86 mg/dL (70-99) 130 mg/dL (70-99) Laboratory Tests Test 07/25/18 14:37 07/25/18 16:16 Glucose (Fingerstick) 86 mg/dL (70-99) 130 mg/dL (70-99) Microbiology 07/23/18 Urine Culture - Final, Complete 07/23/18 Urine Culture Result 1 (CHULA) - Final, Complete Medications Current Medications Sodium Chloride 1,000 ml @ 1,000 mls/hr 1X ONCE IV Last administered on at 09:59; Start 07/23/18 at 09:15; Stop 07/23/18 at 10:14; Status DC Fentanyl Citrate (Fentanyl 2ml Vial) 50 mcg 1X ONCE IV Last administered on 07/23/18at 10:08; Start 07/23/18 at 10:15; Stop 07/23/18 at 10:16; Status DC Ondansetron HCl (Zofran) 4 mg PRN Q8HRS PRN IV NAUSEA/VOMITING; Start 07/23/18 at 12:00; Stop 07/24/18 at 11:59; Status DC Fentanyl Citrate (Fentanyl 2ml Vial) 50 mcg PRN Q2HR PRN IV PAIN Last administered on 07/23/18at 22:31; Start 07/23/18 at 12:00; Stop 07/24/18 at 11:59; Status DC Sodium Chloride 1,000 ml @ 125 mls/hr Q8H IV Last administered on 07/24/18at 00: 43; Start 07/23/18 at 11:51; Stop 07/24/18 at 11:50; Status DC Acetaminophen (Tylenol) 650 mg PRN Q4HRS PRN PO FEVER; Start 07/23/18 at 12:00; Stop 07/24/18 at 11:59; Status DC Ceftriaxone Sodium 50 ml @ 100 mls/hr 1X ONCE IV ; Start 07/23/18 at 12:00; Stop 07/23/18 at 12:29; Status UNV Levofloxacin/ Dextrose 50 ml @ 50 mls/hr ONCE ONCE IV Last administered on 07/23at 12:54; Start 07/23/18 at 12:30; Stop 07/23/18 at 13:29; Status DC Ferrous Sulfate (Feosol) 325 mg DAILY08 PO Last administered on 07/24/18at 13:25 ; Start 07/23/18 at 16:00; Stop 07/25/18 at 14:26; Status DC Non-Formulary Medication (Dextroamphetamine/ Amphetamine (Dextroamp-Amphet Er 10 Mg Cap)) 1 cap DAILYWBKFT PO ; Start 07/24/18 at 08:00; Stop 07/25/18 at 10:14 ; Status DC Duloxetine HCl (Cymbalta) 60 mg QHS PO Last administered on 07/25/18at 22:29; Start 07/23/18 at 21:00 Gabapentin (Neurontin) 300 mg QHS PO Last administered on 07/25/18at 22:30; Start 07/23/18 at 21:00 Lisinopril (Prinivil) 2.5 mg DAILY PO ; Start 07/23/18 at 16:00 Metformin HCl (Glucophage) 500 mg BIDWMEALS PO Last administered on 07/26/18at 08 :16; Start 07/23/18 at 17:00 Multivitamins/ Minerals (I-Caleb) 1 tab DAILY PO ; Start 07/23/18 at 16:00; Stop 07/23/18 at 16:00; Status DC Non-Formulary Medication (Nefazodone Hcl ) 0.5 tab DAILY07 PO Last administered on 07/24/18at 07:00; Start 07/24/18 at 07:00; Stop 07/25/18 at 15:13; Status DC Non-Formulary Medication (Nefazodone Hcl ) 1.5 tab DAILY16 PO ; Start 07/23/18 at 16:00; Stop 07/25/18 at 15:09; Status DC Atorvastatin Calcium (Lipitor) 10 mg QHS PO Last administered on 07/25/18at 22:28 ; Start 07/23/18 at 21:00 Non-Formulary Medication (Vit A/Vit C/Vit E/Zinc/Copper (Preservision Areds Tablet)) 2 tab DAILY PO ; Start 07/24/18 at 09:00; Status UNV Multivitamins/ Minerals (I-Caleb) 2 tab DAILY PO Last administered on 07/26/18at 08:16; Start 07/23/18 at 16:00 Tamsulosin HCl (Flomax) 0.4 mg DAILY PO Last administered on 07/26/18at 08:16; Start 07/23/18 at 16:15 Oxycodone HCl (Roxicodone) 5 mg PRN Q6HRS PRN PO PAIN SEVERE; Start 07/23/18 at 16:45 Acetaminophen (Tylenol) 650 mg BID PO Last administered on 07/24/18at 13:31; Start 07/23/18 at 21:00 Ondansetron HCl (Zofran) 4 mg PRN Q6HRS PRN IV NAUSEA/VOMITING; Start 07/25/18 at 07:00; Stop 07/26/18 at 06:59; Status DC Morphine Sulfate (Morphine Sulfate) 1 mg PRN Q10MIN PRN IV SEVERE PAIN; Start 07/25/18 at 07:00; Stop 07/26/18 at 06:59; Status DC Ringer's Solution 1,000 ml @ 30 mls/hr Q24H IV Last administered on 07/25/18at 14:27; Start 07/25/18 at 07:00; Stop 07/25/18 at 18:59; Status DC Lidocaine HCl (Xylocaine-Mpf 1% 2ml Vial) 2 ml PRN 1X PRN ID IV START; Start at 07:00; Stop 07/26/18 at 06:59; Status DC Hydromorphone HCl (Dilaudid) 0.5 mg PRN Q10MIN PRN IV SEV PAIN, Second choice; Start 07/25/18 at 07:00; Stop 07/26/18 at 06:59; Status DC Prochlorperazine Edisylate (Compazine) 5 mg PACU PRN PRN IV NAUSEA, MRX1; Start 07/25/18 at 07:00; Stop 07/26/18 at 06:59; Status DC Ciprofloxacin/ Dextrose 200 ml @ 200 mls/hr 1X ONCE IV Last administered on at 15:30; Start 07/25/18 at 14:00; Stop 07/25/18 at 15:09; Status DC Pantoprazole Sodium (Protonix) 40 mg DAILYAC PO Last administered on 07/26/18at 07:25; Start 07/25/18 at 13:00 Propofol 20 ml @ As Directed STK-MED ONCE IV ; Start 07/25/18 at 13:45; Stop 07/25 at 13:46; Status DC Lidocaine HCl (Lidocaine Pf 2% Vial) 5 ml STK-MED ONCE .ROUTE ; Start 07/25/18 at 13:45; Stop 07/25/18 at 13:46; Status DC Fentanyl Citrate (Fentanyl 2ml Vial) 100 mcg STK-MED ONCE .ROUTE ; Start at 13:45; Stop 07/25/18 at 13:46; Status DC Ferrous Sulfate (Feosol) 325 mg BID PO Last administered on 07/26/18at 08:16; Start 07/25/18 at 21:00 Cyanocobalamin (Vitamin B-12) 100 mcg DAILY PO Last administered on 07/26/18at 08 :16; Start 07/26/18 at 09:00 Non-Formulary Medication (Nefazodone Hcl ) 2.25 tab DAILY16 PO Last administered on 07/25/18at 17:57; Start 07/25/18 at 15:09 Non-Formulary Medication (Nefazodone Hcl ) 0.75 tab DAILY07 PO Last administered on 07/26/18at 07:26; Start 07/25/18 at 15:13 Ondansetron HCl (Zofran) 4 mg STK-MED ONCE .ROUTE ; Start 07/25/18 at 15:40; Stop 07/25/18 at 15:41; Status DC Dexamethasone Sodium Phosphate (Decadron) 20 mg STK-MED ONCE .ROUTE ; Start 07/25 at 15:40; Stop 07/25/18 at 15:41; Status DC Lidocaine HCl (Glydo (Lidocaine) Jelly) 1 kali STK-MED ONCE MM Last administered on 07/25/18at 16:03; Start 07/25/18 at 16:03; Stop 07/25/18 at 16:10; Status DC Lidocaine HCl (Glydo (Lidocaine) Jelly) 6 kali STK-MED ONCE .ROUTE ; Start at 17:34; Stop 07/25/18 at 18:35; Status DC Active Scripts Active Reported Vitamin B-12 (Cyanocobalamin (Vitamin B-12)) 1,000 Mcg Tablet 1 Tab PO DAILY Ferrous Sulfate 325 Mg Tablet 1 Tab PO DAILY Preservision Areds Tablet (Vit A/Vit C/Vit E/Zinc/Copper) 1 Each Tablet 2 Tab PO DAILY Centrum Silver Men Tablet (Multivit-Min/FA/Lycopen/Lutein) 1 Each Tablet 1 Each PO DAILY Dextroamp-Amphet Er 10 Mg Cap (Dextroamphetamine/Amphetamine) 10 Mg Cap.er.24h 1 Cap PO DAILYWBKFT Aspirin Ec (Aspirin) 81 Mg Tablet.dr 1 Tab PO DAILY Livalo (Pitavastatin Calcium) 4 Mg Tablet 0.5 Tab PO DAILY Lisinopril 5 Mg Tablet 0.5 Tab PO DAILY Gabapentin 300 Mg Capsule 300 Mg PO HS Metformin Hcl 500 Mg Tablet 500 Mg PO BIDWMEALS Cymbalta (Duloxetine Hcl) 60 Mg Capsule.dr 60 Mg PO HS Nefazodone Hcl 150 Mg Tablet 1.5 Tab PO DAILY16 Nefazodone Hcl 150 Mg Tablet 0.5 Tab PO DAILY07 Vitals/I & O Vital Sign - Last 24 Hours 07/25/18 07/25/18 07/25/18 07/25/18 15:00 16:11 16:11 16:26 Temp 97.1 97.1 97.1 97.1 Pulse 70 64 73 Resp 19 15 15 B/P (MAP) 112/61 (78) 129/63 109/63 Pulse Ox 96 100 97 O2 Delivery Room Air Room Air Room Air Room Air O2 Flow Rate 10 07/25/18 07/25/18 07/25/18 07/25/18 16:26 16:41 17:15 17:31 Temp 97.1 97.1 Pulse 73 63 80 B/P (MAP) 111/67 118/65 (82) 120/83 (95) Pulse Ox 97 97 96 O2 Delivery Room Air Room Air O2 Flow Rate 10 10 07/25/18 07/25/18 07/25/18 07/25/18 17:45 18:00 18:31 19:00 Temp 99.0 99.0 Pulse 69 73 83 92 B/P (MAP) 113/52 (72) 121/73 (89) 126/60 (82) 115/67 (83) Pulse Ox 98 94 95 O2 Delivery Room Air 07/25/18 07/25/18 07/25/18 07/26/18 20:00 20:00 23:00 03:00 Temp 99.0 99.3 99.0 99.3 Pulse 86 86 66 Resp 18 18 B/P (MAP) 118/71 (87) 135/70 (91) 112/55 (74) Pulse Ox 94 95 98 O2 Delivery Room Air Room Air Room Air Room Air 07/26/18 07/26/18 07/26/18 07:00 08:15 10:52 Temp 98.1 97.2 98.1 97.2 Pulse 64 65 Resp 16 18 B/P (MAP) 93/73 (80) 135/69 (91) Pulse Ox 98 98 O2 Delivery Room Air Room Air Intake and Output 07/25/18 07/25/18 07/26/18 15:00 23:00 07:00 Intake Total 1000 ml 120 ml Output Total 1050 ml 600 ml Balance -50 ml -480 ml ROSANNA PARSON MD Jul 26, 2018 11:39
--- NOTE | 2018-07-26 11:58 | PDOC ---
SUBJECTIVE Subjective Pt had a great night and is very comfortable currently. He has no dysuria, pain , or burning. He is eating and drinking well and would like to go home today if possible. His urine is a light puente koolaid color. OBJECTIVE Objective Physical Exam: General appearance: Alert and Oriented Head: Normocephalic, without obvious abnormality Eyes: conjunctivae/corneas clear. PERRL, EOM's intact. Fundi benign Back: negative Lungs: regular respirations, non labored breathing Abdomen: soft, non-tender. Vital Signs Vital Signs Date Time Temp Pulse Resp B/P (MAP) Pulse Ox O2 Delivery O2 Flow Rate FiO2 07/26/18 10:52 97.2 65 18 135/69 (91) 98 Room Air 97.2 07/26/18 08:15 Room Air 07/26/18 07:00 98.1 64 16 93/73 (80) 98 98.1 07/26/18 03:00 99.3 66 18 112/55 (74) 98 Room Air 99.3 07/25/18 23:00 99.0 86 18 135/70 (91) 95 Room Air 99.0 07/25/18 20:00 Room Air 07/25/18 20:00 86 118/71 (87) 94 Room Air 07/25/18 19:00 99.0 92 115/67 (83) 95 Room Air 99.0 07/25/18 18:31 83 126/60 (82) 07/25/18 18:00 73 121/73 (89) 94 07/25/18 17:45 69 113/52 (72) 98 07/25/18 17:31 80 120/83 (95) 96 07/25/18 17:15 63 118/65 (82) 97 07/25/18 16:41 97.1 73 111/67 97 Room Air 10 97.1 07/25/18 16:26 Room Air 10 07/25/18 16:26 97.1 73 15 109/63 97 Room Air 97.1 07/25/18 16:11 97.1 64 15 129/63 100 Room Air 10 97.1 07/25/18 16:11 Room Air 07/25/18 15:00 70 19 112/61 (78) 96 Room Air I & O Intake and Output 07/26/18 07:00 Intake Total 1120 ml Output Total 1650 ml Balance -530 ml Intake Oral 420 ml IV Total 700 ml Output Urine Total 1550 ml Estimated Blood Loss 100 ml PHYSICAL EXAM Physical Exam Physical Exam: General appearance: Alert and Oriented Head: Normocephalic, without obvious abnormality Eyes: conjunctivae/corneas clear. PERRL, EOM's intact. Fundi benign Back: negative Lungs: regular respirations, non labored breathing Abdomen: soft, non-tender. ASSESSMENT/PLAN Assessment/Plan Pt is Status post op Small TURBT with removal of papillary lesion for pathology per Dr. Carter. He is voiding well and doing very well overall. May discharge home today if medial team is agreeable. Follow up with Dr. Carter on 08/08/18 at 11 am for review of pathology results. Pt given appointment card and new patient paperwork. All questions answered. Puente colored koolaid is WNL. Please report dark, wine-colored urine or large clots to Urology. Problems: (1) Lesion of bladder COMMENT Lab Laboratory Tests Test 07/25/18 14:37 07/25/18 16:16 Glucose (Fingerstick) 86 mg/dL (70-99) 130 mg/dL (70-99) Imaging CT Abd/Pelvis IMPRESSION: Mild left-sided hydronephrosis and hydroureter due to a left mid ureteral stone located at the level of L4-5 and measuring 5 mm. Bilateral renal stones are seen. Wall thickening of the colon and terminal ileum which may be seen with inflammatory or infectious enterocolitis. 11 mm nodule of the urinary bladder wall which could represent a neoplasm. Hyperdense material is seen within the posterior urinary bladder which may represent blood. Small loculated pleural effusion and scarring of the right lung field which may be related to previous surgery given the patient's history of lung cancer. FAROOQ UYEN CHARGE ENTRY CLERK Jul 26, 2018 11:58
[2018-07-26 12:13] VITALS: BP 133/66
[2018-07-26] MEDS: LISINOPRIL 5 MG TABLET. PO SCH (12:13)
--- NOTE | 2018-07-26 12:58 | PDOC3 ---
Discharge Summary Date of Admission: Jul 23, 2018 Date of Discharge: Jul 26, 2018 Follow-Up: 3-5 days Admitting Diagnosis comment: discharge diagnosis========= Assessment/Plan flank pain hematuria renal stone bladder mass, NOS UROLOGY , home if ok with them TURP pod # 1 Htn Dm2, home meds, Vitals Vitals Vital Signs Date Time Temp Pulse Resp B/P (MAP) Pulse Ox O2 Delivery O2 Flow Rate FiO2 07/26/18 10:52 97.2 65 18 135/69 (91) 98 Room Air 97.2 07/25/18 16:41 10 Physical Exam General: Alert, Oriented X3, Cooperative, No acute distress Heart: Regular rate, Normal S1, Normal S2 Lungs: Clear Abdomen: Normal bowel sounds, Soft, No hepatosplenomegaly Extremities: No clubbing, No cyanosis, No edema Skin: No rashes, No breakdown, No significant lesion Labs Follow up with Dr. Carter on 08/08/18 at 11 am for review of pathology results. Pt given appointment card and new patient paperwork. All questions answered. Roach colored koolaid is WNL. Please report dark, wine-colored urine or large clots to Urology. Problems: FINAL DIAGNOSIS Problems Medical Problems: (1) Lesion of bladder Status: Acute (2) Renal and ureteric calculus Status: Acute (3) UTI (urinary tract infection) Status: Acute Brief Hospital Course Mr. Meza is a 72 old [sex] who presented with [bladder mass ] CONDITION AT DISCHARGE: Improved Discharge Medications Current Medications Sodium Chloride 1,000 ml @ 1,000 mls/hr 1X ONCE IV Last administered on at 09:59; Start 07/23/18 at 09:15; Stop 07/23/18 at 10:14; Status DC Fentanyl Citrate (Fentanyl 2ml Vial) 50 mcg 1X ONCE IV Last administered on 07/23/18at 10:08; Start 07/23/18 at 10:15; Stop 07/23/18 at 10:16; Status DC Ondansetron HCl (Zofran) 4 mg PRN Q8HRS PRN IV NAUSEA/VOMITING; Start 07/23/18 at 12:00; Stop 07/24/18 at 11:59; Status DC Fentanyl Citrate (Fentanyl 2ml Vial) 50 mcg PRN Q2HR PRN IV PAIN Last administered on 07/23/18at 22:31; Start 07/23/18 at 12:00; Stop 07/24/18 at 11:59; Status DC Sodium Chloride 1,000 ml @ 125 mls/hr Q8H IV Last administered on 07/24/18at 00: 43; Start 07/23/18 at 11:51; Stop 07/24/18 at 11:50; Status DC Acetaminophen (Tylenol) 650 mg PRN Q4HRS PRN PO FEVER; Start 07/23/18 at 12:00; Stop 07/24/18 at 11:59; Status DC Ceftriaxone Sodium 50 ml @ 100 mls/hr 1X ONCE IV ; Start 07/23/18 at 12:00; Stop 07/23/18 at 12:29; Status UNV Levofloxacin/ Dextrose 50 ml @ 50 mls/hr ONCE ONCE IV Last administered on 07/23at 12:54; Start 07/23/18 at 12:30; Stop 07/23/18 at 13:29; Status DC Ferrous Sulfate (Feosol) 325 mg DAILY08 PO Last administered on 07/24/18at 13:25 ; Start 07/23/18 at 16:00; Stop 07/25/18 at 14:26; Status DC Non-Formulary Medication (Dextroamphetamine/ Amphetamine (Dextroamp-Amphet Er 10 Mg Cap)) 1 cap DAILYWBKFT PO ; Start 07/24/18 at 08:00; Stop 07/25/18 at 10:14 ; Status DC Duloxetine HCl (Cymbalta) 60 mg QHS PO Last administered on 07/25/18at 22:29; Start 07/23/18 at 21:00 Gabapentin (Neurontin) 300 mg QHS PO Last administered on 07/25/18at 22:30; Start 07/23/18 at 21:00 Lisinopril (Prinivil) 2.5 mg DAILY PO Last administered on 07/26/18at 12:13; Start 07/23/18 at 16:00 Metformin HCl (Glucophage) 500 mg BIDWMEALS PO Last administered on 07/26/18at 08 :16; Start 07/23/18 at 17:00 Multivitamins/ Minerals (I-Caleb) 1 tab DAILY PO ; Start 07/23/18 at 16:00; Stop 07/23/18 at 16:00; Status DC Non-Formulary Medication (Nefazodone Hcl ) 0.5 tab DAILY07 PO Last administered on 07/24/18at 07:00; Start 07/24/18 at 07:00; Stop 07/25/18 at 15:13; Status DC Non-Formulary Medication (Nefazodone Hcl ) 1.5 tab DAILY16 PO ; Start 07/23/18 at 16:00; Stop 07/25/18 at 15:09; Status DC Atorvastatin Calcium (Lipitor) 10 mg QHS PO Last administered on 07/25/18at 22:28 ; Start 07/23/18 at 21:00 Non-Formulary Medication (Vit A/Vit C/Vit E/Zinc/Copper (Preservision Areds Tablet)) 2 tab DAILY PO ; Start 07/24/18 at 09:00; Status UNV Multivitamins/ Minerals (I-Caleb) 2 tab DAILY PO Last administered on 07/26/18at 08:16; Start 07/23/18 at 16:00 Tamsulosin HCl (Flomax) 0.4 mg DAILY PO Last administered on 07/26/18at 08:16; Start 07/23/18 at 16:15 Oxycodone HCl (Roxicodone) 5 mg PRN Q6HRS PRN PO PAIN SEVERE; Start 07/23/18 at 16:45 Acetaminophen (Tylenol) 650 mg BID PO Last administered on 07/24/18at 13:31; Start 07/23/18 at 21:00 Ondansetron HCl (Zofran) 4 mg PRN Q6HRS PRN IV NAUSEA/VOMITING; Start 07/25/18 at 07:00; Stop 07/26/18 at 06:59; Status DC Morphine Sulfate (Morphine Sulfate) 1 mg PRN Q10MIN PRN IV SEVERE PAIN; Start 07/25/18 at 07:00; Stop 07/26/18 at 06:59; Status DC Ringer's Solution 1,000 ml @ 30 mls/hr Q24H IV Last administered on 07/25/18at 14:27; Start 07/25/18 at 07:00; Stop 07/25/18 at 18:59; Status DC Lidocaine HCl (Xylocaine-Mpf 1% 2ml Vial) 2 ml PRN 1X PRN ID IV START; Start at 07:00; Stop 07/26/18 at 06:59; Status DC Hydromorphone HCl (Dilaudid) 0.5 mg PRN Q10MIN PRN IV SEV PAIN, Second choice; Start 07/25/18 at 07:00; Stop 07/26/18 at 06:59; Status DC Prochlorperazine Edisylate (Compazine) 5 mg PACU PRN PRN IV NAUSEA, MRX1; Start 07/25/18 at 07:00; Stop 07/26/18 at 06:59; Status DC Ciprofloxacin/ Dextrose 200 ml @ 200 mls/hr 1X ONCE IV Last administered on at 15:30; Start 07/25/18 at 14:00; Stop 07/25/18 at 15:09; Status DC Pantoprazole Sodium (Protonix) 40 mg DAILYAC PO Last administered on 07/26/18at 07:25; Start 07/25/18 at 13:00 Propofol 20 ml @ As Directed STK-MED ONCE IV ; Start 07/25/18 at 13:45; Stop 07/25 at 13:46; Status DC Lidocaine HCl (Lidocaine Pf 2% Vial) 5 ml STK-MED ONCE .ROUTE ; Start 07/25/18 at 13:45; Stop 07/25/18 at 13:46; Status DC Fentanyl Citrate (Fentanyl 2ml Vial) 100 mcg STK-MED ONCE .ROUTE ; Start at 13:45; Stop 07/25/18 at 13:46; Status DC Ferrous Sulfate (Feosol) 325 mg BID PO Last administered on 07/26/18at 08:16; Start 07/25/18 at 21:00 Cyanocobalamin (Vitamin B-12) 100 mcg DAILY PO Last administered on 07/26/18at 08 :16; Start 07/26/18 at 09:00 Non-Formulary Medication (Nefazodone Hcl ) 2.25 tab DAILY16 PO Last administered on 07/25/18at 17:57; Start 07/25/18 at 15:09 Non-Formulary Medication (Nefazodone Hcl ) 0.75 tab DAILY07 PO Last administered on 07/26/18at 07:26; Start 07/25/18 at 15:13 Ondansetron HCl (Zofran) 4 mg STK-MED ONCE .ROUTE ; Start 07/25/18 at 15:40; Stop 07/25/18 at 15:41; Status DC Dexamethasone Sodium Phosphate (Decadron) 20 mg STK-MED ONCE .ROUTE ; Start 07/25 at 15:40; Stop 07/25/18 at 15:41; Status DC Lidocaine HCl (Glydo (Lidocaine) Jelly) 1 kali STK-MED ONCE MM Last administered on 07/25/18at 16:03; Start 07/25/18 at 16:03; Stop 07/25/18 at 16:10; Status DC Lidocaine HCl (Glydo (Lidocaine) Jelly) 6 kali STK-MED ONCE .ROUTE ; Start at 17:34; Stop 07/25/18 at 18:35; Status DC Active Scripts Active Reported Vitamin B-12 (Cyanocobalamin (Vitamin B-12)) 1,000 Mcg Tablet 1 Tab PO DAILY Ferrous Sulfate 325 Mg Tablet 1 Tab PO DAILY Preservision Areds Tablet (Vit A/Vit C/Vit E/Zinc/Copper) 1 Each Tablet 2 Tab PO DAILY Centrum Silver Men Tablet (Multivit-Min/FA/Lycopen/Lutein) 1 Each Tablet 1 Each PO DAILY Dextroamp-Amphet Er 10 Mg Cap (Dextroamphetamine/Amphetamine) 10 Mg Cap.er.24h 1 Cap PO DAILYWBKFT Aspirin Ec (Aspirin) 81 Mg Tablet.dr 1 Tab PO DAILY Livalo (Pitavastatin Calcium) 4 Mg Tablet 0.5 Tab PO DAILY Lisinopril 5 Mg Tablet 0.5 Tab PO DAILY Gabapentin 300 Mg Capsule 300 Mg PO HS Metformin Hcl 500 Mg Tablet 500 Mg PO BIDWMEALS Cymbalta (Duloxetine Hcl) 60 Mg Capsule.dr 60 Mg PO HS Nefazodone Hcl 150 Mg Tablet 1.5 Tab PO DAILY16 Nefazodone Hcl 150 Mg Tablet 0.5 Tab PO DAILY07 Vital Signs Vital Signs Date Time Temp Pulse Resp B/P (MAP) Pulse Ox O2 Delivery O2 Flow Rate FiO2 07/26/18 12:13 74 133/66 07/26/18 10:52 97.2 18 98 Room Air 97.2 07/25/18 16:41 10 Labs Laboratory Tests Test 07/25/18 06:27 07/25/18 14:37 07/25/18 16:16 White Blood Count 7.8 x10^3/uL (4.0-11.0) Red Blood Count 3.87 x10^6/uL (4.30-5.70) Hemoglobin 10.1 g/dL (13.0-17.5) Hematocrit 30.3 % (39.0-53.0) Mean Corpuscular Volume 78 fL (79-100) Mean Corpuscular Hemoglobin 26 pg (25-35) Mean Corpuscular Hemoglobin Concent 33 g/dL (31-37) Red Cell Distribution Width 15.0 % (11.5-14.5) Platelet Count 221 x10^3/uL (140-400) Neutrophils (%) (Auto) 74 % (31-73) Lymphocytes (%) (Auto) 14 % (24-48) Monocytes (%) (Auto) 9 % (0-9) Eosinophils (%) (Auto) 3 % (0-3) Basophils (%) (Auto) 0 % (0-3) Neutrophils # (Auto) 5.7 x10^3uL (1.8-7.7) Lymphocytes # (Auto) 1.1 x10^3/uL (1.0-4.8) Monocytes # (Auto) 0.7 x10^3/uL (0.0-1.1) Eosinophils # (Auto) 0.2 x10^3/uL (0.0-0.7) Basophils # (Auto) 0.0 x10^3/uL (0.0-0.2) Reticulocyte Count (auto) 1.0 % (0.5-2.5) Sodium Level 138 mmol/L (136-145) Potassium Level 3.8 mmol/L (3.5-5.1) Chloride Level 104 mmol/L (98-107) Carbon Dioxide Level 27 mmol/L (21-32) Anion Gap 7 (6-14) Blood Urea Nitrogen 11 mg/dL (8-26) Creatinine 0.8 mg/dL (0.7-1.3) Estimated GFR (Cockcroft-Gault) 95.0 BUN/Creatinine Ratio 14 (6-20) Glucose Level 100 mg/dL (70-99) Calcium Level 8.0 mg/dL (8.5-10.1) Iron Level 23 ug/dL (65-175) Total Iron Binding Capacity 306 ug/dL (250-450) Iron Saturation 8 % (15-34) Total Bilirubin 0.3 mg/dL (0.2-1.0) Aspartate Amino Transf (AST/SGOT) 20 U/L (15-37) Alanine Aminotransferase (ALT/SGPT) 18 U/L (16-63) Alkaline Phosphatase 83 U/L (46-116) Total Protein 7.8 g/dL (6.4-8.2) Albumin 2.4 g/dL (3.4-5.0) Albumin/Globulin Ratio 0.4 (1.0-1.7) Vitamin B12 Level 238 pg/mL (247-911) Serum Folate 6.48 ng/ml (3.2-20.0) Glucose (Fingerstick) 86 mg/dL (70-99) 130 mg/dL (70-99) Laboratory Tests Test 07/25/18 14:37 07/25/18 16:16 Glucose (Fingerstick) 86 mg/dL (70-99) 130 mg/dL (70-99) Allergies Allergies Coded Allergies Type Severity Reaction Last Updated Verified Penicillins Allergy Severe 07/23/18 Yes Disposition/Orders: D/C to Home ROSANNA PARSON MD Jul 26, 2018 12:58
--- NOTE | 2018-07-26 13:00 | DISCH ---
DISCHARGE INSTRUCTIONS Condition on Discharge Condition on Discharge: Stable Activity After Discharge Activity Instructions for Disc: Resume previous activity Lifting Instructions after Dis: No heavy lifting, No pulling or pushing Exercise Instruction after Dis: Walk 10 min, 3 x per day Driving Instructions after Dis: Do not drive Weight Bearing Status after Di: As tolerated Diet after Discharge Diet after Discharge: Cardiac Checks after Discharge Checks after discharge: Check blood press - daily Contacting the DR. after DC Call your doctor for: If your condition worsens ROSANNA PARSON MD Jul 26, 2018 13:00
[2018-07-26] MEDS ORDERED: TAMS0.4C97 PO (13:03)
--- NOTE | 2018-07-27 15:10 | PATHOLOGY ---
[facility] Accession Number: [id number] . 01 Material submitted: . BLADDER TUMOR . 01 Clinical history: . Bladder tumor, gross hematuria . . . 02 Diagnosis: Bladder tumor, transurethral resection: - Papillary low grade urothelial carcinoma. See comment. (JPM:daniel; 07/27/2018) QMS/07/27/2018 . 02 Comment: Sections of the bladder tumor transurethral resection reveal a papillary low grade urothelial carcinoma. There is no evidence of invasive carcinoma. There is no muscularis propria present in the specimen. The case is also examined by Dr. Jacinto Brenner, who concurs with the diagnosis. . (JPM:daniel; 07/27/2018) . 02 Electronically signed: . Josef Vyas MD, Pathologist NPI- [id number] . 01 Gross description: . The specimen is received in formalin, labeled "Ruperto Meza and bladder tumor", are multiple irregular fragments of bowen soft tissues measuring 0.5 x 0.4 x 0.1 cm in aggregate, entirely submitted in A1. ([facility]; 07/26/2018) SHS/SHS . 02 Pathologist provided ICD-10: C67.9 . 02 CPT . [id number] Performed at: 01 [facility] [address], [place], [place] [id number] MD Jorge Demarco MD Phone: [phone] Performed at: 02 [facility] [place] [address] [place], [place] [id number] MD Josef Vyas MD Phone: [phone]
== END 2018-07-26 13:50 | disposition home or self-care (01) | DRG 668 ==
LOC: ER 09:04 → 4 NORTH 11:50
PROVIDERS: ADMIT Internal Medicine; ATTEND Internal Medicine
PROC: 0TBB8ZZ Excision of Bladder, Via Natural or Artificial Opening Endoscopic (ICD-10-PCS; principal; 2018-07-25 15:00)
DX: D49.4 Neoplasm of unspecified behavior of bladder (principal); E43 Unspecified severe protein-calorie malnutrition; N13.6 Pyonephrosis; J90 Pleural effusion, not elsewhere classified; E11.9 Type 2 diabetes mellitus without complications; D64.9 Anemia, unspecified; E53.8 Deficiency of other specified B group vitamins; E78.00 Pure hypercholesterolemia, unspecified; F32.9 Major depressive disorder, single episode, unspecified; I10 Essential (primary) hypertension; G89.29 Other chronic pain; J98.4 Other disorders of lung; R31.0 Gross hematuria; Z79.82 Long term (current) use of aspirin; Z85.118 Personal history of other malignant neoplasm of bronchus and lung; Z68.24 Body mass index [BMI] 24.0-24.9, adult; Z90.2 Acquired absence of lung [part of]; Z88.0 Allergy status to penicillin; Z87.891 Personal history of nicotine dependence
CPT/HCPCS: 36415; 74018; 74176; 80048; 80053; 81001; 82274; 82607; 82746; 82962; 83540; 83550; 85025; 85045; 85610; 85730; 87086; 88305; 93005; 96361; 96365; 96375; J0744; J1100; J1956; J2001; J2405; J2704; J3010; J7030; J7120; 99285-25